=== PATIENT | female | born 1990 | race African-American/Black ===

== ENCOUNTER 2018-02-21 22:04 | Emergency (ER) | payer OTHER ==
[2018-02-21] MEDS ORDERED: Dexamethasone 4 MG TAB ONE (22:57)
[2018-02-21] MEDS ORDERED: Bicillin LA 1.2 MILLION UNITS/2 ML SYRINGE ONE (22:57)
== END 2018-02-21 23:26 | disposition home or self-care (01) ==
LOC: ERS 22:04
DX: J02.9 Acute pharyngitis, unspecified (principal); I10 Essential (primary) hypertension
CPT/HCPCS: 87081; 87430; 96372; J0561; J8540

== ENCOUNTER 2019-03-01 11:54 | Emergency (ER) | payer OTHER | END 2019-03-01 13:05 | disposition home or self-care (01) | LOC: ERS 11:54 | DX: K03.81 Cracked tooth (principal); I10 Essential (primary) hypertension | CPT/HCPCS: 99282 ==

== ENCOUNTER 2019-12-06 11:43 | Emergency (ER) | payer OTHER ==
[2019-12-06] MEDS ORDERED: Ketorolac Tromethamine 30 MG/ML VIAL ONE (12:21)
== END 2019-12-06 12:30 | disposition home or self-care (01) ==
LOC: ERS 11:43
DX: G44.209 Tension-type headache, unspecified, not intractable (principal); M19.90 Unspecified osteoarthritis, unspecified site; I10 Essential (primary) hypertension; Z79.899 Other long term (current) drug therapy
CPT/HCPCS: 96372; 99283; J1885

== ENCOUNTER 2021-05-08 17:04 | Emergency (ER) | payer OTHER | END 2021-05-08 18:54 | disposition home or self-care (01) | LOC: ERS 17:04 | DX: H74.8X1 Other specified disorders of right middle ear and mastoid (principal) | CPT/HCPCS: 99282; J1100 ==

== ENCOUNTER 2021-05-29 11:05 | Inpatient (IN) | payer OTHER ==
[2021-05-29 11:42] LABS: #Lymphocytes 1.6 thou/uL (1.20-3.40); #Monocytes 0.6 thou/uL (0.11-0.59); #Neutrophils 4.9 thou/uL (1.40-6.50); %Basophils 0.1 % (0.0-1.0); %Eosinophils 0.1 % (0.0-10.0); %Monocytes 8.1 % (0.0-10.0); %Neutrophils 68.7 % (42.0-75.0); Hemoglobin 16.1 g/dL (12.0-16.0); Mean Corpuscular HGB CONC 31.2 g/dL (32.0-36.0); Mean Corpuscular Hemoglobin 26.8 pg (27.0-31.0); Mean Corpuscular Volume 85.9 fL (78.0-98.0); Mean Platelet Volume 8.3 fL (7.4-10.4); Platelet Count 269 thou/uL (130-400); RBC Distribution Width 13.1 % (11.5-14.5); Red Blood Cell (RBC) Count 6.01 mill/uL (4.20-5.40); White Blood Cell (WBC) Count 7.1 thou/uL (4.8-10.8)
[2021-05-29 12:11] LABS: ALT (SGPT) 24 U/L (8-55); AST (SGOT) 43 U/L (5-34); Albumin 4.2 g/dL (3.5-5.0); Alkaline Phosphatase 68 U/L (40-110); Anion Gap 16 mmol/L (10-20); BUN (Urea Nitrogen) 22 mg/dL (7.0-18.7); Bilirubin, Total 0.2 mg/dL (0.2-1.2); Calc. Creatinine Clearance 0 mL/min (70-130); Calcium 9.1 mg/dL (7.8-10.44); Carbon Dioxide 14 mmol/L (22-29); Chloride 102 mmol/L (98-107); Globulin 4.7 g/dL (2.4-3.5); Glucose 120 mg/dL (70-105); Potassium 4.2 mmol/L (3.5-5.1); Protein, Total 8.9 g/dL (6.0-8.3); Sodium 128 mmol/L (136-145)
[2021-05-29 12:38] LABS: BHCG - Serum Negative (NEGATIVE); Pregs Control Background? CLEAR/WHITE (CLR/WHITE); Pregs Control Bar Appear? YES (CONTROL BAR)
[2021-05-29] MEDS ORDERED: Acetaminophen 500 MG TAB ONE (12:47)
[2021-05-29] MEDS ORDERED: Ondansetron PF 4 MG/2 ML Vial ONE (12:48)
[2021-05-29] MEDS ORDERED: cefTRIAXone\\ROCEPHIN 2 GM VIAL ONE (12:48)
[2021-05-29 13:46] LABS: SARS-CoV-2 NAA Rapid Test DETECTED (NotDetected)
[2021-05-29] MEDS ORDERED: Ondansetron PF 4 MG/2 ML Vial IVP PRN (14:07)
[2021-05-29] MEDS ORDERED: Loperamide HCl 2 MG CAP PO PRN ×2 (14:07)
[2021-05-29] MEDS ORDERED: Enoxaparin Sodium 40 MG/0.4 ML SYRINGE SC SCH (14:10)
[2021-05-29] MEDS ORDERED: Promethazine HCl 12.5 MG in Sodium Chloride 0.9% 50 ML IVPB PRN (14:17)
[2021-05-29] MEDS: Lactated Ringer's 1,000 ML IV SCH ×2 (16:10→21:46)
[2021-05-29] MEDS ORDERED: Famotidine 20 MG TAB PO SCH (21:00)
[2021-05-29] MEDS ORDERED: Famotidine 20 MG TAB ONE (21:45)
[2021-05-30] MEDS: Lactated Ringer's 1,000 ML IV SCH ×5 (00:28→18:25)
[2021-05-30] MEDS: Guaifenesin DM 100-10/5 ML UDCUP PO PRN ×3 (00:28→18:24)
[2021-05-30] MEDS: Acetaminophen 325 MG TAB PO PRN (00:34)
[2021-05-30] MEDS ORDERED: Ibuprofen 100 MG/5 ML UDCUP PO PRN (00:48)
[2021-05-30 07:12] LABS: ALT (SGPT) 17 U/L (8-55); AST (SGOT) 36 U/L (5-34); Albumin 3.2 g/dL (3.5-5.0); Alkaline Phosphatase 46 U/L (40-110); Anion Gap 7 mmol/L (10-20); BUN (Urea Nitrogen) 10 mg/dL (7.0-18.7); Bilirubin, Total 0.2 mg/dL (0.2-1.2); Calc. Creatinine Clearance 168 mL/min (70-130); Calcium 8.3 mg/dL (7.8-10.44); Carbon Dioxide 24 mmol/L (22-29); Chloride 101 mmol/L (98-107); Globulin 3.5 g/dL (2.4-3.5); Glucose 109 mg/dL (70-105); Potassium 4.1 mmol/L (3.5-5.1); Protein, Total 6.7 g/dL (6.0-8.3); Sodium 128 mmol/L (136-145)
[2021-05-30] MEDS: Enoxaparin Sodium 40 MG/0.4 ML SYRINGE SC SCH (08:08)
[2021-05-30 09:00] LABS: Band 7 % (5-11); Hemoglobin 14.3 g/dL (12.0-16.0); Lymphocytes 19 % (21-51); MDiff Complete? YES; Mean Corpuscular HGB CONC 32.9 g/dL (32.0-36.0); Mean Corpuscular Hemoglobin 27.9 pg (27.0-31.0); Mean Corpuscular Volume 84.9 fL (78.0-98.0); Mean Platelet Volume 8.4 fL (7.4-10.4); Monocytes 4 % (0-10); Neutrophil 70 % (42-75); Platelet Count 203 thou/uL (130-400); Platelet Morphology Comment Appears Adequate; RBC Distribution Width 12.9 % (11.5-14.5); RBC Morphology Normal; Red Blood Cell (RBC) Count 5.13 mill/uL (4.20-5.40); White Blood Cell (WBC) Count 4.8 thou/uL (4.8-10.8)
[2021-05-30] MEDS: Dexamethasone 4 MG TAB PO SCH (09:58)
[2021-05-30 16:48] LABS: Bilirubin Negative (Negative); Blood, Urine 3+ (Negative); Clarity Turbid (Clear); Glucose, Urine (Dipstick) Normal (Negative); Ketone, Urine 10 mg/dL (Negative); Leukocyte 250 Leu/uL (Negative); Nitrite Negative (Negative); Protein, Urine (Dipstick) 30 mg/dL (Neg-Trace); RBC/HPF Greater than 50 HPF (0-3); Specific Gravity, Urine 1.009 (1.002-1.036); Squamous Epithelial 0-3 HPF (0-3); Urobilinogen Normal mg/dL (Less than 2)
[2021-05-30 17:03] LABS: Bacteria/HPF 1+ HPF (None Seen)
[2021-05-30] MEDS: Melatonin 3 MG TAB PO PRN (22:15)
[2021-05-31] MEDS ORDERED: diphenhydrAMINE 50 MG/ML VIAL IVP SCH ×2 (01:30→21:00)
[2021-05-31] MEDS: Lactated Ringer's 1,000 ML IV SCH ×2 (02:57→08:36)
[2021-05-31] MEDS: Acetaminophen 325 MG TAB PO PRN ×4 (03:20→23:25)
[2021-05-31] MEDS ORDERED: Ibuprofen 100 MG/5 ML UDCUP PO PRN ×2 (07:33→07:43)
[2021-05-31] MEDS: Enoxaparin Sodium 40 MG/0.4 ML SYRINGE SC SCH (08:34)
[2021-05-31] MEDS: Guaifenesin DM 100-10/5 ML UDCUP PO PRN ×3 (08:34→23:25)
[2021-05-31] MEDS: Dexamethasone 4 MG TAB PO SCH (08:34)
[2021-05-31] MEDS ORDERED: Lactated Ringer's 1,000 ML IV SCH ×2 (09:30→12:00)
[2021-05-31] MEDS ORDERED: Iopamidol-370 76% 500 ML 1 ML ONE (11:24)
[2021-05-31] MEDS ORDERED: Enoxaparin Sodium 60 MG/0.6 ML SYRINGE SC ONE (11:40)
[2021-05-31 12:10] LABS: Hemoglobin 13.8 g/dL (12.0-16.0); Mean Corpuscular Hemoglobin 27.1 pg (27.0-31.0); Mean Corpuscular Volume 84.9 fL (78.0-98.0); Mean Platelet Volume 8.4 fL (7.4-10.4); Platelet Count 182 thou/uL (130-400); Red Blood Cell (RBC) Count 5.09 mill/uL (4.20-5.40); White Blood Cell (WBC) Count 5.9 thou/uL (4.8-10.8)
[2021-05-31 12:19] LABS: ALT (SGPT) 13 U/L (8-55); AST (SGOT) 40 U/L (5-34); Albumin 2.4 g/dL (3.5-5.0); Alkaline Phosphatase 34 U/L (40-110); Anion Gap 11 mmol/L (10-20); BUN (Urea Nitrogen) 10 mg/dL (7.0-18.7); Bilirubin, Total 0.2 mg/dL (0.2-1.2); Calc. Creatinine Clearance 170 mL/min (70-130); Calcium 7.3 mg/dL (7.8-10.44); Carbon Dioxide 17 mmol/L (22-29); Chloride 98 mmol/L (98-107); Globulin 3.1 g/dL (2.4-3.5); Glucose 145 mg/dL (70-105); Potassium 3.7 mmol/L (3.5-5.1); Protein, Total 5.5 g/dL (6.0-8.3); Sodium 122 mmol/L (136-145)
[2021-05-31 12:42] LABS: Band 9 % (5-11); Lymphocytes 16 % (21-51); MDiff Complete? YES; Neutrophil 75 % (42-75); Platelet Morphology Comment Appears Adequate; Polychromasia SLIGHT = 2-3 cells (100X) (0-2/hpf); Vacuoles SLIGHT
[2021-05-31] MEDS ORDERED: Furosemide 40 MG/4 ML VIAL SLOW IVP SCH (13:00)
[2021-05-31] MEDS: Famotidine 20 MG TAB PO PRN (15:08)
[2021-05-31 18:05] LABS: Anion Gap 13 mmol/L (10-20); BUN (Urea Nitrogen) 11 mg/dL (7.0-18.7); Calc. Creatinine Clearance 177 mL/min (70-130); Calcium 8.3 mg/dL (7.8-10.44); Carbon Dioxide 16 mmol/L (22-29); Chloride 101 mmol/L (98-107); Glucose 159 mg/dL (70-105); Potassium 4.5 mmol/L (3.5-5.1); Sodium 125 mmol/L (136-145)
[2021-06-01] MEDS: Acetaminophen 325 MG TAB PO PRN ×2 (07:23→18:18)
[2021-06-01] MEDS: Enoxaparin Sodium 40 MG/0.4 ML SYRINGE SC SCH (07:23)
[2021-06-01] MEDS: Dexamethasone 4 MG TAB PO SCH (07:23)
[2021-06-01] MEDS: Guaifenesin DM 100-10/5 ML UDCUP PO PRN ×2 (07:24→18:18)
[2021-06-01 08:18] LABS: Hemoglobin 16.4 g/dL (12.0-16.0); Mean Corpuscular HGB CONC 33.7 g/dL (32.0-36.0); Mean Corpuscular Hemoglobin 28.4 pg (27.0-31.0); Mean Corpuscular Volume 84.2 fL (78.0-98.0); Mean Platelet Volume 9.5 fL (7.4-10.4); Platelet Count 142 thou/uL (130-400); RBC Distribution Width 13.2 % (11.5-14.5); Red Blood Cell (RBC) Count 5.78 mill/uL (4.20-5.40); White Blood Cell (WBC) Count 10.5 thou/uL (4.8-10.8)
[2021-06-01 08:34] LABS: Anion Gap 17 mmol/L (10-20); BUN (Urea Nitrogen) 10 mg/dL (7.0-18.7); Calc. Creatinine Clearance 195 mL/min (70-130); Calcium 7.9 mg/dL (7.8-10.44); Carbon Dioxide 13 mmol/L (22-29); Chloride 100 mmol/L (98-107); Glucose 137 mg/dL (70-105); Potassium 4.7 mmol/L (3.5-5.1); Sodium 125 mmol/L (136-145)
[2021-06-01 09:15] LABS: Band 5 % (5-11); Lymphocytes 12 % (21-51); MDiff Complete? YES; Neutrophil 81 % (42-75); Platelet Morphology Comment Appears Adequate; RBC Morphology Normal; Reactive Lymphocytes 2 % (0-10)
[2021-06-01] MEDS: Famotidine 20 MG TAB PO PRN (09:35)
[2021-06-01 12:40] LABS: Actual Bicarbonate (HCO3a) 19.2 mEq/L (22-28); Base Excess (BEa) -2.9 mEq/L (-2.0 to +3.0); CO2 Tension 27.7 mmHg (35.0-45.0); Calcium, Ionized (arterial) 1.07 mmol/L (1.12-1.30); Carboxyhemoglobin (COHb) 0.5 gm% (0.0-3.0); Hemoglobin (Hb) 16.5 g/dL (12.0-16.0); Potassium - ABG Lab 3.83 mmol/L (3.70-5.30); pH, Arterial 7.46 (7.35-7.45)
[2021-06-01 12:45] LABS: ALV-art Gradient 250.915 mmHg (0-20); O2 Tension (PaO2), arterial 56.7 mmHg (80.0-100.0); Puncture Site RBA
[2021-06-01 17:00] LABS: Anion Gap 14 mmol/L (10-20); BUN (Urea Nitrogen) 10 mg/dL (7.0-18.7); Calc. Creatinine Clearance 198 mL/min (70-130); Carbon Dioxide 21 mmol/L (22-29); Chloride 94 mmol/L (98-107); Glucose 130 mg/dL (70-105); Potassium 4.1 mmol/L (3.5-5.1); Sodium 125 mmol/L (136-145)
[2021-06-01] MEDS ORDERED: diphenhydrAMINE 50 MG/ML VIAL IVP SCH (22:45)
[2021-06-02] MEDS: Melatonin 3 MG TAB PO PRN ×2 (00:18→20:32)
[2021-06-02] MEDS: Albuterol 200 PUFF (6.7GM INHALER) INH PRN ×2 (01:38→05:59)
[2021-06-02 02:08] LABS: Actual Bicarbonate (HCO3a) 22.1 mEq/L (22-28); Base Excess (BEa) -0.9 mEq/L (-2.0 to +3.0); CO2 Tension 32.5 mmHg (35.0-45.0); Calcium, Ionized (arterial) 1.12 mmol/L (1.12-1.30); Carboxyhemoglobin (COHb) 0.4 gm% (0.0-3.0); Hemoglobin (Hb) 15.7 g/dL (12.0-16.0); O2 Tension (PaO2), arterial 61.2 mmHg (80.0-100.0); Potassium - ABG Lab 4.02 mmol/L (3.70-5.30); pH, Arterial 7.45 (7.35-7.45)
[2021-06-02 02:10] LABS: ALV-art Gradient 432.925 mmHg (0-20); Puncture Site RRA
[2021-06-02] MEDS: Acetaminophen 325 MG TAB PO PRN ×2 (03:26→23:49)
[2021-06-02] MEDS: Guaifenesin DM 100-10/5 ML UDCUP PO PRN (03:26)
[2021-06-02] MEDS: Famotidine 20 MG TAB PO PRN (06:34)
[2021-06-02] MEDS: Dexamethasone 4 MG TAB PO SCH (08:08)
[2021-06-02] MEDS: Enoxaparin Sodium 40 MG/0.4 ML SYRINGE SC SCH (08:08)
[2021-06-02] MEDS ORDERED: Magnesium 2 GM/50 ML 2 GM in Premix Bag 1 BAG IVPB PRN (08:09)
[2021-06-02] MEDS ORDERED: Potassium Phosphate 15 MMOL in Sodium Chloride 0.9% 250 ML 250 ML IVPB PRN (08:09)
[2021-06-02] MEDS ORDERED: Electrolyte Replacement Protocol 1 EACH FS PRN (08:15)
[2021-06-02] MEDS ORDERED: Lactated Ringer's 500 ML IV SCH (08:15)
[2021-06-02] MEDS ORDERED: REMDESIVIR 200 MG in Sodium Chloride 0.9% 250 ML 210 ML IV SCH (09:00)
[2021-06-02 09:01] LABS: Actual Bicarbonate (HCO3a) 22.7 mEq/L (22-28); Base Excess (BEa) -0.9 mEq/L (-2.0 to +3.0); CO2 Tension 34.9 mmHg (35.0-45.0); Calcium, Ionized (arterial) 1.12 mmol/L (1.12-1.30); Carboxyhemoglobin (COHb) 0.6 gm% (0.0-3.0); Hemoglobin (Hb) 15.3 g/dL (12.0-16.0); Potassium - ABG Lab 3.75 mmol/L (3.70-5.30); pH, Arterial 7.43 (7.35-7.45)
[2021-06-02 09:04] LABS: O2 Tension (PaO2), arterial 55.7 mmHg (80.0-100.0); Puncture Site RRA
[2021-06-02 09:37] LABS: ALV-art Gradient 328.475 mmHg (0-20)
[2021-06-02] MEDS: Lactated Ringer's 1,000 ML IV SCH ×3 (10:02→23:51)
[2021-06-02] MEDS: Famotidine 20 MG TAB PO SCH ×2 (10:03→20:32)
[2021-06-02] MEDS: Azithromycin 500 MG in Sodium Chloride 0.9% 250 ML 250 ML IVPB SCH ×2 (10:03→11:03)
[2021-06-02 12:31] LABS: Hemoglobin 15.7 g/dL (12.0-16.0); Mean Corpuscular Hemoglobin 27.8 pg (27.0-31.0); Mean Corpuscular Volume 84.2 fL (78.0-98.0); Mean Platelet Volume 9.5 fL (7.4-10.4); Platelet Count 153 thou/uL (130-400); RBC Distribution Width 13.1 % (11.5-14.5); Red Blood Cell (RBC) Count 5.63 mill/uL (4.20-5.40); White Blood Cell (WBC) Count 13.4 thou/uL (4.8-10.8)
[2021-06-02 12:32] LABS: Band 1 % (5-11); Lymphocytes 20 % (21-51); MDiff Complete? YES; Monocytes 3 % (0-10); Neutrophil 76 % (42-75); Platelet Morphology Comment Appears Adequate; RBC Morphology Normal
[2021-06-02 13:09] LABS: Chloride 98 mmol/L (98-107); Sodium 126 mmol/L (136-145)
[2021-06-02 13:16] LABS: Anion Gap 19 mmol/L (10-20); Carbon Dioxide 15 mmol/L (22-29)
[2021-06-02 13:17] LABS: Calc. Creatinine Clearance 208 mL/min (70-130); Glucose 113 mg/dL (70-105); Potassium 6.5 mmol/L (3.5-5.1)
[2021-06-02 13:18] LABS: BUN (Urea Nitrogen) 14 mg/dL (7.0-18.7)
[2021-06-03] MEDS ORDERED: diphenhydrAMINE 50 MG/ML VIAL IVP PRN (03:32)
[2021-06-03 04:30] LABS: Anion Gap 15 mmol/L (10-20); BUN (Urea Nitrogen) 14 mg/dL (7.0-18.7); Calc. Creatinine Clearance 205 mL/min (70-130); Calcium 7.9 mg/dL (7.8-10.44); Carbon Dioxide 22 mmol/L (22-29); Chloride 97 mmol/L (98-107); Glucose 111 mg/dL (70-105); Magnesium 2.1 mg/dL (1.6-2.6); Potassium 4.2 mmol/L (3.5-5.1); Sodium 130 mmol/L (136-145)
[2021-06-03] MEDS: Albuterol 200 PUFF (6.7GM INHALER) INH PRN (05:08)
[2021-06-03 05:18] LABS: Band 3 % (5-11); Hemoglobin 14.1 g/dL (12.0-16.0); Lymphocytes 19 % (21-51); MDiff Complete? YES; Mean Corpuscular HGB CONC 32.3 g/dL (32.0-36.0); Mean Corpuscular Hemoglobin 27.1 pg (27.0-31.0); Mean Corpuscular Volume 83.9 fL (78.0-98.0); Mean Platelet Volume 8.7 fL (7.4-10.4); Monocytes 5 % (0-10); Neutrophil 73 % (42-75); Platelet Count 224 thou/uL (130-400)
[2021-06-03] MEDS ORDERED: hydrOXYzine 25 MG TAB PO PRN (08:47)
[2021-06-03] MEDS ORDERED: REMDESIVIR 100 MG in Sodium Chloride 0.9% 250 ML 230 ML IV SCH (09:00)
[2021-06-03] MEDS ORDERED: ALPRAZolam 0.5 MG TAB PO PRN (09:15)
[2021-06-03] MEDS: Azithromycin 500 MG in Sodium Chloride 0.9% 250 ML 250 ML IVPB SCH (10:13)
[2021-06-03] MEDS: Dexamethasone 4 MG TAB PO SCH (10:14)
[2021-06-03] MEDS: Acetaminophen 325 MG TAB PO PRN (10:15)
[2021-06-03] MEDS: Famotidine 20 MG TAB PO SCH ×2 (10:15→21:47)
[2021-06-03] MEDS: Enoxaparin Sodium 40 MG/0.4 ML SYRINGE SC SCH (10:15)
[2021-06-03] MEDS: Lactated Ringer's 1,000 ML IV SCH ×2 (13:21→18:36)
[2021-06-04 03:25] LABS: Hemoglobin 13.9 g/dL (12.0-16.0); Mean Corpuscular HGB CONC 33.4 g/dL (32.0-36.0); Mean Corpuscular Hemoglobin 28.2 pg (27.0-31.0); Mean Corpuscular Volume 84.5 fL (78.0-98.0); Mean Platelet Volume 9.6 fL (7.4-10.4); Platelet Count 144 thou/uL (130-400); RBC Distribution Width 13.1 % (11.5-14.5); Red Blood Cell (RBC) Count 4.93 mill/uL (4.20-5.40); White Blood Cell (WBC) Count 13.3 thou/uL (4.8-10.8)
[2021-06-04 04:24] LABS: Band 2 % (5-11); Lymphocytes 10 % (21-51); MDiff Complete? YES; Monocytes 5 % (0-10); Neutrophil 83 % (42-75)
[2021-06-04] MEDS ORDERED: Lorazepam 2 MG/ML VIAL SLOW IVP SCH (04:38)
[2021-06-04 04:39] LABS: Chloride 97 mmol/L (98-107); Potassium 4.2 mmol/L (3.5-5.1); Sodium 131 mmol/L (136-145)
[2021-06-04 04:40] LABS: Calcium 7.9 mg/dL (7.8-10.44); Glucose 169 mg/dL (70-105)
[2021-06-04 04:42] LABS: Anion Gap 17 mmol/L (10-20); Carbon Dioxide 21 mmol/L (22-29)
[2021-06-04 04:44] LABS: BUN (Urea Nitrogen) 13 mg/dL (7.0-18.7); Calc. Creatinine Clearance 198 mL/min (70-130)
[2021-06-04 04:45] LABS: Magnesium 2.1 mg/dL (1.6-2.6)
[2021-06-04] MEDS ORDERED: Ventilator Sedation Protocol 1 EACH FS SCH (06:15)
[2021-06-04] MEDS ORDERED: Propofol 1,000 MG/100 ML VIAL IV ONE (06:30)
[2021-06-04] MEDS ORDERED: DISCONTINUE PREVIOUS NARCOTIC PAIN MEDICATIONS AND BENZODIAZEPINES FS SCH (07:00)
[2021-06-04] MEDS ORDERED: Propofol BOLUS 1,000 MG/100 ML VIAL IV PRN (07:00)
[2021-06-04] MEDS ORDERED: Fentanyl BOLUS 250 ML IVPB PRN (07:00)
[2021-06-04] MEDS ORDERED: Morphine 2 MG/ML VIAL SLOW IVP PRN (07:00)
[2021-06-04] MEDS ORDERED: fentaNYL Citrate/PF 2,000 MCG in Sodium Chloride 0.9% 60 ML IV SCH (07:00)
[2021-06-04 07:10] LABS: Actual Bicarbonate (HCO3a) 23.9 mEq/L (22-28); Base Excess (BEa) -4.3 mEq/L (-2.0 to +3.0); CO2 Tension 57.2 mmHg (35.0-45.0); Calcium, Ionized (arterial) 1.14 mmol/L (1.12-1.30); Carboxyhemoglobin (COHb) 1.1 gm% (0.0-3.0); Hemoglobin (Hb) 13.6 g/dL (12.0-16.0); Potassium - ABG Lab 4.64 mmol/L (3.70-5.30)
[2021-06-04 07:14] LABS: O2 Tension (PaO2), arterial 51.9 mmHg (80.0-100.0); Puncture Site LRA; pH, Arterial 7.24 (7.35-7.45)
[2021-06-04] MEDS ORDERED: Succinylcholine 200 MG/10 ml SYRINGE FS SCH (07:15)
[2021-06-04] MEDS ORDERED: Rocuronium Bromide 50 MG/5 ML VIAL IVP SCH (07:30)
[2021-06-04] MEDS ORDERED: PROPOFOL 200 MG/20 ML VIAL IVP SCH (07:30)
[2021-06-04] MEDS ORDERED: Fentanyl CADD 100 ML ONE ×2 (07:46→22:20)
[2021-06-04 07:47] LABS: Troponin I 0.311 ng/mL (< 0.028)
[2021-06-04] MEDS ORDERED: Vecuronium 10 MG VIAL ONE ×2 (08:19→08:46)
[2021-06-04 08:20] LABS: Actual Bicarbonate (HCO3a) 24.1 mEq/L (22-28); Base Excess (BEa) -1.2 mEq/L (-2.0 to +3.0); CO2 Tension 42.5 mmHg (35.0-45.0); Calcium, Ionized (arterial) 1.08 mmol/L (1.12-1.30); Carboxyhemoglobin (COHb) 0.7 gm% (0.0-3.0); Hemoglobin (Hb) 14.1 g/dL (12.0-16.0); O2 Tension (PaO2), arterial 71.5 mmHg (80.0-100.0); Potassium - ABG Lab 5.01 mmol/L (3.70-5.30); pH, Arterial 7.37 (7.35-7.45)
[2021-06-04 08:21] LABS: ALV-art Gradient 374.475 mmHg (0-20); Puncture Site RRA
[2021-06-04 08:23] LABS: Troponin I 1.145 ng/mL (< 0.028)
[2021-06-04] MEDS: Lorazepam 2 MG/ML VIAL SLOW IVP PRN ×3 (08:28→22:43)
[2021-06-04] MEDS: Azithromycin 500 MG in Sodium Chloride 0.9% 250 ML 250 ML IVPB SCH (08:49)
[2021-06-04] MEDS: Lactated Ringer's 1,000 ML IV SCH ×3 (08:49→20:24)
[2021-06-04] MEDS: Famotidine/PF 20 mg/2ml Vial SLOW IVP SCH ×2 (08:51→22:03)
[2021-06-04] MEDS: Enoxaparin Sodium 100 MG/ML SYRINGE SC SCH ×2 (08:51→22:03)
[2021-06-04] MEDS: Dexamethasone 4 MG TAB PO SCH (08:52)
[2021-06-04] MEDS ORDERED: Rocuronium Bromide 10 MG/ML (10ML VIAL) ONE (09:21)
[2021-06-04] MEDS ORDERED: PROPOFOL 200 MG/20 ML VIAL ONE (09:21)
[2021-06-04] MEDS ORDERED: Succinylcholine 200 MG/10 ml SYRINGE FS ONE (09:21)
[2021-06-04] MEDS ORDERED: Dexamethasone 4 mg/ml Vial SLOW IVP SCH (09:45)
[2021-06-04] MEDS: Propofol 1,000 MG/100 ML VIAL IV PRN ×2 (10:37→18:30)
[2021-06-04 11:37] LABS: Critical Call Chem Troponin I RESULT DECREASING; Troponin I 0.635 ng/mL (< 0.028)
[2021-06-04] MEDS: Vecuronium 10 MG VIAL IVP PRN ×2 (20:20→22:42)
[2021-06-05] MEDS: Propofol 1,000 MG/100 ML VIAL IV PRN ×5 (04:35→23:56)
[2021-06-05] MEDS: Lactated Ringer's 1,000 ML IV SCH (04:40)
[2021-06-05 04:53] LABS: Hemoglobin 11.5 g/dL (12.0-16.0); Mean Corpuscular HGB CONC 32.6 g/dL (32.0-36.0); Mean Corpuscular Hemoglobin 27.4 pg (27.0-31.0); Mean Platelet Volume 10.2 fL (7.4-10.4); Platelet Count 128 thou/uL (130-400); Red Blood Cell (RBC) Count 4.19 mill/uL (4.20-5.40); White Blood Cell (WBC) Count 16.2 thou/uL (4.8-10.8)
[2021-06-05 04:55] LABS: Anion Gap 17 mmol/L (10-20); BUN (Urea Nitrogen) 17 mg/dL (7.0-18.7); Calc. Creatinine Clearance 187 mL/min (70-130); Calcium 8.1 mg/dL (7.8-10.44); Carbon Dioxide 21 mmol/L (22-29); Chloride 98 mmol/L (98-107); Glucose 131 mg/dL (70-105); Magnesium 2.2 mg/dL (1.6-2.6); Phosphorus 2.8 mg/dL (2.3-4.7); Potassium 4.8 mmol/L (3.5-5.1); Sodium 131 mmol/L (136-145)
[2021-06-05 06:23] LABS: Band 7 % (5-11); Lymphocytes 15 % (21-51); MDiff Complete? YES; Neutrophil 78 % (42-75); Platelet Morphology Comment Appears Decreased
[2021-06-05 08:16] LABS: Actual Bicarbonate (HCO3a) 22.1 mEq/L (22-28); Analyzer IN Cardio ER; Base Excess (BEa) 0.1 mEq/L (-2.0 to +3.0); Calcium, Ionized (arterial) 1.07 mmol/L (1.12-1.30); Carboxyhemoglobin (COHb) 0.1 gm% (0.0-3.0); Hemoglobin (Hb) 12.1 g/dL (12.0-16.0); Potassium - ABG Lab 4.47 mmol/L (3.70-5.30); pH, Arterial 7.52 (7.35-7.45)
[2021-06-05 08:18] LABS: Puncture Site RRA
[2021-06-05] MEDS: Enoxaparin Sodium 100 MG/ML SYRINGE SC SCH ×2 (09:09→20:12)
[2021-06-05] MEDS: Famotidine/PF 20 mg/2ml Vial SLOW IVP SCH ×2 (09:10→20:12)
[2021-06-05] MEDS: Dexamethasone 4 mg/ml Vial SLOW IVP SCH (09:11)
[2021-06-05 10:18] LABS: ALT (SGPT) 53 U/L (8-55); AST (SGOT) 58 U/L (5-34); Albumin 2.6 g/dL (3.5-5.0); Alkaline Phosphatase 106 U/L (40-110); Bilirubin, Direct 0.1 mg/dL (0.1-0.3); Bilirubin, Total 0.5 mg/dL (0.2-1.2); Protein, Total 6.2 g/dL (6.0-8.3)
[2021-06-05 11:30] LABS: Base Excess (BEa) -1.9 mEq/L (-2.0 to +3.0); CO2 Tension 34.7 mmHg (35.0-45.0); Calcium, Ionized (arterial) 1.11 mmol/L (1.12-1.30); Carboxyhemoglobin (COHb) 0.4 gm% (0.0-3.0); Hemoglobin (Hb) 13.1 g/dL (12.0-16.0); O2 Tension (PaO2), arterial 103.6 mmHg (80.0-100.0); Potassium - ABG Lab 4.38 mmol/L (3.70-5.30); pH, Arterial 7.42 (7.35-7.45)
[2021-06-05] MEDS ORDERED: Fentanyl CADD 100 ML ONE (11:35)
[2021-06-05 13:33] LABS: Puncture Site RRA
[2021-06-05 13:34] LABS: ALV-art Gradient 138.225 mmHg (0-20)
[2021-06-05] MEDS: Lorazepam 2 MG/ML VIAL SLOW IVP PRN (13:42)
[2021-06-05] MEDS: Vecuronium 10 MG VIAL IVP PRN (13:43)
[2021-06-05] MEDS: BARICITINIB 1 MG TAB PO SCH (14:35)
[2021-06-06] MEDS ORDERED: Fentanyl CADD 100 ML ONE (00:21)
[2021-06-06] MEDS: Propofol 1,000 MG/100 ML VIAL IV PRN ×6 (03:52→22:55)
[2021-06-06 04:42] LABS: Hemoglobin 11.3 g/dL (12.0-16.0); Mean Corpuscular Hemoglobin 28.7 pg (27.0-31.0); Mean Corpuscular Volume 84.2 fL (78.0-98.0); Mean Platelet Volume 10.2 fL (7.4-10.4); Platelet Count 155 thou/uL (130-400); Red Blood Cell (RBC) Count 3.95 mill/uL (4.20-5.40); White Blood Cell (WBC) Count 18.8 thou/uL (4.8-10.8)
[2021-06-06 05:11] LABS: Band 2 % (5-11); Large Platelets SLIGHT; Lymphocytes 13 % (21-51); MDiff Complete? YES; Metamyelocyte 1 % (0-0); Monocytes 3 % (0-10); Myelocyte 1 % (0-0); Neutrophil 80 % (42-75); Platelet Morphology Comment Appears Adequate
[2021-06-06 05:23] LABS: Anion Gap 15 mmol/L (10-20); BUN (Urea Nitrogen) 14 mg/dL (7.0-18.7); Calc. Creatinine Clearance 222 mL/min (70-130); Calcium 8.3 mg/dL (7.8-10.44); Carbon Dioxide 23 mmol/L (22-29); Chloride 97 mmol/L (98-107); Glucose 137 mg/dL (70-105); Magnesium 2.4 mg/dL (1.6-2.6); Phosphorus 3.5 mg/dL (2.3-4.7); Potassium 5.1 mmol/L (3.5-5.1); Sodium 130 mmol/L (136-145)
[2021-06-06] MEDS: Dexamethasone 4 mg/ml Vial SLOW IVP SCH (08:31)
[2021-06-06] MEDS: Famotidine/PF 20 mg/2ml Vial SLOW IVP SCH ×2 (08:32→20:04)
[2021-06-06] MEDS: Enoxaparin Sodium 100 MG/ML SYRINGE SC SCH ×2 (08:32→20:04)
[2021-06-06] MEDS ORDERED: Furosemide 40 MG/4 ML VIAL SLOW IVP SCH (10:00)
[2021-06-06] MEDS ORDERED: cefTRIAXone\\ROCEPHIN 1 GM in Sodium Chloride 0.9% 100 ML IVPB SCH (11:00)
[2021-06-06 12:12] LABS: Actual Bicarbonate (HCO3a) 28.2 mEq/L (22-28); CO2 Tension 40.6 mmHg (35.0-45.0); Calcium, Ionized (arterial) 1.07 mmol/L (1.12-1.30); Carboxyhemoglobin (COHb) 0.3 gm% (0.0-3.0); Hemoglobin (Hb) 12.1 g/dL (12.0-16.0); O2 Tension (PaO2), arterial 71.9 mmHg (80.0-100.0); Potassium - ABG Lab 5.05 mmol/L (3.70-5.30); pH, Arterial 7.46 (7.35-7.45)
[2021-06-06] MEDS: Lorazepam 2 MG/ML VIAL SLOW IVP PRN (12:32)
[2021-06-06] MEDS: Fentanyl CADD 100 ML ONE ×2 (12:51→12:55)
[2021-06-06] MEDS: BARICITINIB 1 MG TAB PO SCH (14:10)
[2021-06-06 14:12] LABS: Puncture Site LRA
[2021-06-06 18:03] LABS: Anion Gap 12 mmol/L (10-20); BUN (Urea Nitrogen) 13 mg/dL (7.0-18.7); Calc. Creatinine Clearance 219 mL/min (70-130); Calcium 8.1 mg/dL (7.8-10.44); Carbon Dioxide 28 mmol/L (22-29); Chloride 96 mmol/L (98-107); Glucose 171 mg/dL (70-105); Potassium 5.2 mmol/L (3.5-5.1); Sodium 131 mmol/L (136-145)
[2021-06-07] MEDS ORDERED: Fentanyl CADD 100 ML ONE ×2 (01:59→16:47)
[2021-06-07] MEDS: Fentanyl CADD 100 ML IV SCH ×2 (02:01→16:56)
[2021-06-07] MEDS: Propofol 1,000 MG/100 ML VIAL IV PRN ×4 (03:36→19:50)
[2021-06-07 04:24] LABS: Hemoglobin 10.3 g/dL (12.0-16.0); Mean Corpuscular HGB CONC 32.6 g/dL (32.0-36.0); Mean Corpuscular Hemoglobin 27.6 pg (27.0-31.0); Mean Corpuscular Volume 84.9 fL (78.0-98.0); Mean Platelet Volume 9.5 fL (7.4-10.4); Platelet Count 197 thou/uL (130-400); RBC Distribution Width 13.1 % (11.5-14.5); Red Blood Cell (RBC) Count 3.74 mill/uL (4.20-5.40); White Blood Cell (WBC) Count 23.4 thou/uL (4.8-10.8)
[2021-06-07 04:40] LABS: ALT (SGPT) 114 U/L (8-55); AST (SGOT) 227 U/L (5-34); Albumin 2.7 g/dL (3.5-5.0); Alkaline Phosphatase 109 U/L (40-110); Anion Gap 13 mmol/L (10-20); BUN (Urea Nitrogen) 12 mg/dL (7.0-18.7); Bilirubin, Total 0.8 mg/dL (0.2-1.2); Calc. Creatinine Clearance 223 mL/min (70-130); Calcium 8.3 mg/dL (7.8-10.44); Carbon Dioxide 29 mmol/L (22-29); Chloride 95 mmol/L (98-107); Globulin 3.9 g/dL (2.4-3.5); Glucose 131 mg/dL (70-105); Magnesium 2.3 mg/dL (1.6-2.6); Phosphorus 3.1 mg/dL (2.3-4.7); Protein, Total 6.6 g/dL (6.0-8.3); Sodium 132 mmol/L (136-145)
[2021-06-07 05:34] LABS: Band 9 % (5-11); Lymphocytes 11 % (21-51); MDiff Complete? YES; Monocytes 6 % (0-10); Neutrophil 74 % (42-75); Nucleated RBC 2 % (0)
[2021-06-07 06:45] LABS: Actual Bicarbonate (HCO3a) 30.7 mEq/L (22-28); Calcium, Ionized (arterial) 1.12 mmol/L (1.12-1.30); Hemoglobin (Hb) 11.5 g/dL (12.0-16.0); Potassium - ABG Lab 4.95 mmol/L (3.70-5.30); pH, Arterial 7.45 (7.35-7.45)
[2021-06-07 06:56] LABS: O2 Tension (PaO2), arterial 55.8 mmHg (80.0-100.0); Puncture Site LRA
[2021-06-07] MEDS: Famotidine/PF 20 mg/2ml Vial SLOW IVP SCH ×2 (08:00→20:42)
[2021-06-07] MEDS: Dexamethasone 4 mg/ml Vial SLOW IVP SCH (08:00)
[2021-06-07] MEDS: Enoxaparin Sodium 100 MG/ML SYRINGE SC SCH (08:01)
[2021-06-07] MEDS ORDERED: VANCOMYCIN IVPB PRN (08:56)
[2021-06-07] MEDS: Cefepime 2 GM in Sodium Chloride 0.9% 100 ML IVPB SCH ×2 (09:24→20:42)
[2021-06-07 11:41] LABS: Prothrombin Time 13.5 sec (12.0-14.7)
[2021-06-07 11:43] LABS: PTT 44.2 sec (22.9-36.1)
[2021-06-07 12:08] LABS: Lactic Acid 1.1 mmol/L (0.5-2.2)
[2021-06-07 12:21] LABS: Base Excess (BEa) 6.5 mEq/L (-2.0 to +3.0); CO2 Tension 44.6 mmHg (35.0-45.0); Calcium, Ionized (arterial) 1.04 mmol/L (1.12-1.30); Carboxyhemoglobin (COHb) 0.1 gm% (0.0-3.0); Hemoglobin (Hb) 10.7 g/dL (12.0-16.0); Potassium - ABG Lab 5.01 mmol/L (3.70-5.30); pH, Arterial 7.46 (7.35-7.45)
[2021-06-07 12:40] LABS: Puncture Site RRA
[2021-06-07 13:29] LABS: SARS-CoV-2 PCR by NAA DETECTED (NotDetected)
[2021-06-07] MEDS ORDERED: BARICITINIB 2 MG TAB PO SCH (15:00)
[2021-06-07] MEDS: Vancomycin HCl 1.5 GM in Sodium Chloride 0.9% 250 ML 300 ML IVPB SCH (16:29)
[2021-06-08] MEDS: Vancomycin HCl 1.5 GM in Sodium Chloride 0.9% 250 ML 300 ML IVPB SCH ×4 (01:29→18:39)
[2021-06-08] MEDS: Propofol 1,000 MG/100 ML VIAL IV PRN ×4 (02:48→20:56)
[2021-06-08] MEDS: Fentanyl CADD 100 ML IV SCH ×2 (07:27→21:07)
[2021-06-08 08:15] LABS: Albumin 2.7 g/dL (3.5-5.0)
[2021-06-08 08:16] LABS: Chloride 95 mmol/L (98-107); Potassium 4.6 mmol/L (3.5-5.1); Sodium 130 mmol/L (136-145)
[2021-06-08 08:17] LABS: Calcium 8.6 mg/dL (7.8-10.44); Glucose 123 mg/dL (70-105)
[2021-06-08 08:18] LABS: Globulin 3.8 g/dL (2.4-3.5); Protein, Total 6.5 g/dL (6.0-8.3)
[2021-06-08 08:19] LABS: Anion Gap 12 mmol/L (10-20); Bilirubin, Total 1.5 mg/dL (0.2-1.2); Carbon Dioxide 28 mmol/L (22-29)
[2021-06-08 08:20] LABS: Alkaline Phosphatase 133 U/L (40-110)
[2021-06-08 08:21] LABS: Calc. Creatinine Clearance 237 mL/min (70-130); Phosphorus 3.6 mg/dL (2.3-4.7)
[2021-06-08 08:22] LABS: BUN (Urea Nitrogen) 9 mg/dL (7.0-18.7)
[2021-06-08 08:23] LABS: ALT (SGPT) 173 U/L (8-55); AST (SGOT) 326 U/L (5-34); Magnesium 2.1 mg/dL (1.6-2.6)
[2021-06-08 08:24] LABS: Band 8 % (5-11); Bite Cells SLIGHT = 2-5 cells (100X) (0-1/hpf); Hemoglobin 10.5 g/dL (12.0-16.0); Lymphocytes 10 % (21-51); MDiff Complete? YES; Mean Corpuscular HGB CONC 32.6 g/dL (32.0-36.0); Mean Corpuscular Volume 85.8 fL (78.0-98.0); Mean Platelet Volume 8.7 fL (7.4-10.4); Metamyelocyte 3 % (0-0); Monocytes 2 % (0-10); Myelocyte 2 % (0-0); Neutrophil 75 % (42-75); Platelet Count 148 thou/uL (130-400); Platelet Morphology Comment Appears Adequate; Polychromasia SLIGHT = 2-3 cells (100X) (0-2/hpf); RBC Distribution Width 13.2 % (11.5-14.5); Red Blood Cell (RBC) Count 3.76 mill/uL (4.20-5.40); White Blood Cell (WBC) Count 20.4 thou/uL (4.8-10.8)
[2021-06-08] MEDS ORDERED: Fentanyl 100 MCG/2 ML VIAL SLOW IVP SCH (08:45)
[2021-06-08] MEDS ORDERED: Midazolam HCl 2 mg/2 ml Vial SLOW IVP SCH (08:45)
[2021-06-08] MEDS ORDERED: Enoxaparin Sodium 40 MG/0.4 ML SYRINGE SC SCH (09:00)
[2021-06-08] MEDS: Fentanyl CADD 100 ML ONE ×2 (09:00→19:50)
[2021-06-08] MEDS ORDERED: Fentanyl 100 MCG/2 ML VIAL ONE (09:43)
[2021-06-08] MEDS: Cefepime 2 GM in Sodium Chloride 0.9% 100 ML IVPB SCH ×2 (09:46→20:53)
[2021-06-08] MEDS: Dexamethasone 4 mg/ml Vial SLOW IVP SCH (09:50)
[2021-06-08] MEDS ORDERED: Iopamidol-370 76% 500 ML 1 ML ONE (09:52)
[2021-06-08] MEDS: Famotidine/PF 20 mg/2ml Vial SLOW IVP SCH (09:54)
[2021-06-08] MEDS: Vecuronium 10 MG VIAL IVP PRN (13:07)
[2021-06-08] MEDS ORDERED: Heparin 25,000 units/D5W 500 ML IVPB SCH (17:30)
[2021-06-08] MEDS ORDERED: Heparin 10,000 UNITS/ 10 ML VIAL SLOW IVP SCH (17:30)
[2021-06-08] MEDS: metroNIDAZOLE 500 MG in Premix Bag 1 BAG IVPB SCH (18:20)
[2021-06-08 18:34] LABS: Vancomycin, Trough 37.7 ug/mL
[2021-06-08] MEDS: Famotidine 20 MG TAB PO SCH (20:54)
[2021-06-08] MEDS ORDERED: Enoxaparin Sodium 100 MG/ML SYRINGE SC SCH (21:00)
[2021-06-08] MEDS ORDERED: Fentanyl CADD 100 ML ONE (21:04)
[2021-06-09] MEDS: metroNIDAZOLE 500 MG in Premix Bag 1 BAG IVPB SCH ×3 (02:37→16:45)
[2021-06-09] MEDS: Propofol 1,000 MG/100 ML VIAL IV PRN ×4 (02:42→20:58)
[2021-06-09 04:12] LABS: Platelet Count 216 thou/uL (130-400)
[2021-06-09 06:36] LABS: Hemoglobin 8.9 g/dL (12.0-16.0); Mean Corpuscular HGB CONC 31.3 g/dL (32.0-36.0); Mean Corpuscular Hemoglobin 26.7 pg (27.0-31.0); Mean Corpuscular Volume 85.1 fL (78.0-98.0); Mean Platelet Volume 9.2 fL (7.4-10.4); Platelet Count 208 thou/uL (130-400); RBC Distribution Width 13.1 % (11.5-14.5); Red Blood Cell (RBC) Count 3.33 mill/uL (4.20-5.40); White Blood Cell (WBC) Count 21.2 thou/uL (4.8-10.8)
[2021-06-09 06:44] LABS: PTT 210.1 sec (22.9-36.1)
[2021-06-09 06:49] LABS: Lactic Acid 0.9 mmol/L (0.5-2.2)
[2021-06-09 06:51] LABS: Band 4 % (5-11); Hypochromia SLIGHT = 6-15 cells (100X) (0-5/hpf); Lymphocytes 8 % (21-51); MDiff Complete? YES; Metamyelocyte 1 % (0-0); Monocytes 6 % (0-10); Myelocyte 2 % (0-0); Neutrophil 79 % (42-75); Platelet Morphology Comment Appears Adequate; Polychromasia SLIGHT = 2-3 cells (100X) (0-2/hpf)
[2021-06-09 06:54] LABS: ALT (SGPT) 183 U/L (8-55); AST (SGOT) 257 U/L (5-34); Albumin 2.5 g/dL (3.5-5.0); Alkaline Phosphatase 125 U/L (40-110); Anion Gap 12 mmol/L (10-20); BUN (Urea Nitrogen) 9 mg/dL (7.0-18.7); Bilirubin, Total 0.9 mg/dL (0.2-1.2); Calc. Creatinine Clearance 244 mL/min (70-130); Calcium 8.9 mg/dL (7.8-10.44); Carbon Dioxide 29 mmol/L (22-29); Chloride 95 mmol/L (98-107); Globulin 4.1 g/dL (2.4-3.5); Glucose 125 mg/dL (70-105); Potassium 4.4 mmol/L (3.5-5.1); Protein, Total 6.6 g/dL (6.0-8.3); Sodium 132 mmol/L (136-145)
[2021-06-09 08:14] LABS: Unfractionated Heparin 0.87 IU/mL
[2021-06-09 08:15] LABS: Vancomycin, Random 4.2 ug/mL (See Comment)
[2021-06-09] MEDS ORDERED: MEROPENEM 1 GM/50 ML 1 GM in Premix Bag 1 BAG IVPB SCH (08:15)
[2021-06-09] MEDS: Dexamethasone 4 mg/ml Vial SLOW IVP SCH (08:20)
[2021-06-09] MEDS: Famotidine 20 MG TAB PO SCH ×2 (08:21→20:14)
[2021-06-09] MEDS ORDERED: Vancomycin HCl 1 GM in Sodium Chloride 0.9% 250 ML 250 ML IVPB SCH ×2 (09:00→10:00)
[2021-06-09] MEDS ORDERED: Vancomycin 1 GM in Premix Bag 1 BAG IVPB SCH (10:00)
[2021-06-09] MEDS ORDERED: Lorazepam 2 MG/ML VIAL SLOW IVP PRN (11:29)
[2021-06-09] MEDS ORDERED: Heparin 25,000 units/D5W 500 ML IV SCH (11:30)
[2021-06-09] MEDS ORDERED: Heparin 10,000 UNITS/ 10 ML VIAL SLOW IVP SCH ×2 (11:30→16:00)
[2021-06-09] MEDS ORDERED: methylPREDNISolone Sod Succ 40 MG VIAL IVP SCH (11:45)
[2021-06-09 11:46] LABS: Vancomycin, Trough 2.6 ug/mL
[2021-06-09] MEDS ORDERED: Fentanyl CADD 100 ML ONE (11:52)
[2021-06-09] MEDS ORDERED: Furosemide 40 MG/4 ML VIAL SLOW IVP SCH (12:00)
[2021-06-09 12:08] LABS: PTT 42.2 sec (22.9-36.1); Prothrombin Time 13.4 sec (12.0-14.7)
[2021-06-09] MEDS: methylPREDNISolone Sod Succ 40 MG VIAL IVP SCH (13:07)
[2021-06-09] MEDS: Bacteriostatic Water 30 ML VIAL FS PRN (13:08)
[2021-06-09] MEDS: Vancomycin HCl 1.25 GM in Sodium Chloride 0.9% 250 ML 250 ML IVPB SCH ×2 (13:09→19:10)
[2021-06-09 13:18] LABS: Base Excess (BEa) 6.9 mEq/L (-2.0 to +3.0); CO2 Tension 42.6 mmHg (35.0-45.0); Calcium, Ionized (arterial) 1.13 mmol/L (1.12-1.30); Carboxyhemoglobin (COHb) 0.2 gm% (0.0-3.0); Hemoglobin (Hb) 9.8 g/dL (12.0-16.0); O2 Tension (PaO2), arterial 82.6 mmHg (80.0-100.0); Potassium - ABG Lab 4.29 mmol/L (3.70-5.30); pH, Arterial 7.48 (7.35-7.45)
[2021-06-09 13:21] LABS: Puncture Site Arterial Line
[2021-06-09] MEDS ORDERED: Meropenem 1 GM in Sodium Chloride 0.9% 100 ML IVPB SCH (14:00)
[2021-06-09 14:01] LABS: DRVVT Confirm 36.2; HEX PHOS LA Tube 1 52.8 SEC; HEX PHOS LA Tube 2 38.6 SEC; Hexagonal Phospholipid Neut 14.2 SEC (0-8.0)
[2021-06-09 14:04] LABS: Factor VIII Test 508.9 % ACTIVE (56-157)
[2021-06-09] MEDS: MEROPENEM 1 GM/50 ML 1 GM in Premix Bag 1 BAG IVPB SCH (15:44)
[2021-06-09] MEDS: Heparin 25,000 units/D5W 500 ML IV SCH (16:46)
[2021-06-09 17:36] LABS: Complement-C4 27.9 mg/dL (15-57)
[2021-06-10] MEDS: MEROPENEM 1 GM/50 ML 1 GM in Premix Bag 1 BAG IVPB SCH ×3 (00:15→15:36)
[2021-06-10] MEDS: methylPREDNISolone Sod Succ 40 MG VIAL IVP SCH ×2 (00:30→12:23)
[2021-06-10] MEDS ORDERED: Fentanyl CADD 100 ML ONE ×2 (01:00→12:51)
[2021-06-10] MEDS: Fentanyl CADD 100 ML IV SCH (01:07)
[2021-06-10] MEDS: Heparin 25,000 units/D5W 500 ML IV SCH (01:08)
[2021-06-10] MEDS: Propofol 1,000 MG/100 ML VIAL IV PRN ×7 (01:09→20:25)
[2021-06-10 05:10] LABS: ALT (SGPT) 174 U/L (8-55); AST (SGOT) 183 U/L (5-34); Albumin 2.5 g/dL (3.5-5.0); Alkaline Phosphatase 113 U/L (40-110); Anion Gap 12 mmol/L (10-20); BUN (Urea Nitrogen) 10 mg/dL (7.0-18.7); Bilirubin, Total 0.6 mg/dL (0.2-1.2); Calc. Creatinine Clearance 146 mL/min (70-130); Calcium 8.8 mg/dL (7.8-10.44); Carbon Dioxide 30 mmol/L (22-29); Chloride 97 mmol/L (98-107); Glucose 116 mg/dL (70-105); Potassium 3.9 mmol/L (3.5-5.1); Protein, Total 6.5 g/dL (6.0-8.3); Sodium 135 mmol/L (136-145)
[2021-06-10 05:16] LABS: Hemoglobin 7.9 g/dL (12.0-16.0); Mean Corpuscular HGB CONC 31.7 g/dL (32.0-36.0); Mean Corpuscular Volume 85.3 fL (78.0-98.0); Mean Platelet Volume 9.1 fL (7.4-10.4); Platelet Count 274 thou/uL (130-400); RBC Distribution Width 12.9 % (11.5-14.5); Red Blood Cell (RBC) Count 2.93 mill/uL (4.20-5.40); White Blood Cell (WBC) Count 20.8 thou/uL (4.8-10.8)
[2021-06-10 05:17] LABS: Band 3 % (5-11); Lymphocytes 9 % (21-51); MDiff Complete? YES; Monocytes 13 % (0-10); Neutrophil 75 % (42-75); Platelet Morphology Comment Appears Adequate
[2021-06-10] MEDS: Famotidine 20 MG TAB PO SCH ×2 (08:40→20:25)
[2021-06-10] MEDS: Dexamethasone 4 mg/ml Vial SLOW IVP SCH (08:41)
[2021-06-10] MEDS: Lorazepam 2 MG/ML VIAL SLOW IVP PRN (08:42)
[2021-06-10 09:53] LABS: Vancomycin, Trough 5.5 ug/mL
[2021-06-11] MEDS: MEROPENEM 1 GM/50 ML 1 GM in Premix Bag 1 BAG IVPB SCH ×4 (00:08→23:42)
[2021-06-11] MEDS: methylPREDNISolone Sod Succ 40 MG VIAL IVP SCH ×3 (00:30→23:43)
[2021-06-11] MEDS ORDERED: Fentanyl CADD 100 ML ONE ×2 (00:59→13:28)
[2021-06-11] MEDS: Fentanyl CADD 100 ML IV SCH (01:05)
[2021-06-11] MEDS: Propofol 1,000 MG/100 ML VIAL IV PRN ×6 (01:24→21:07)
[2021-06-11 01:28] LABS: Hemoglobin 8.4 g/dL (12.0-16.0)
[2021-06-11 05:14] LABS: Anion Gap 12 mmol/L (10-20); BUN (Urea Nitrogen) 12 mg/dL (7.0-18.7); Calc. Creatinine Clearance 147 mL/min (70-130); Calcium 8.9 mg/dL (7.8-10.44); Carbon Dioxide 28 mmol/L (22-29); Chloride 100 mmol/L (98-107); Glucose 128 mg/dL (70-105); Potassium 4.2 mmol/L (3.5-5.1); Sodium 136 mmol/L (136-145)
[2021-06-11 05:23] LABS: Band 4 % (5-11); Hemoglobin 8.3 g/dL (12.0-16.0); Lymphocytes 7 % (21-51); MDiff Complete? YES; Mean Corpuscular HGB CONC 32.6 g/dL (32.0-36.0); Mean Corpuscular Hemoglobin 27.8 pg (27.0-31.0); Mean Corpuscular Volume 85.2 fL (78.0-98.0); Mean Platelet Volume 7.9 fL (7.4-10.4); Metamyelocyte 1 % (0-0); Monocytes 2 % (0-10); Neutrophil 86 % (42-75); Platelet Count 314 thou/uL (130-400); Platelet Morphology Comment Appears Adequate; RBC Distribution Width 13.2 % (11.5-14.5); RBC Morphology Normal; Red Blood Cell (RBC) Count 2.97 mill/uL (4.20-5.40); White Blood Cell (WBC) Count 23.5 thou/uL (4.8-10.8)
[2021-06-11] MEDS ORDERED: hydrALAZINE 20 MG/ML VIAL SLOW IVP PRN (08:01)
[2021-06-11] MEDS: Famotidine 20 MG TAB PO SCH ×2 (09:06→21:07)
[2021-06-11] MEDS: Lorazepam 2 MG/ML VIAL SLOW IVP PRN ×2 (09:21→20:52)
[2021-06-11] MEDS: Dexamethasone 4 mg/ml Vial SLOW IVP SCH (09:31)
[2021-06-11] MEDS: Heparin 25,000 units/D5W 500 ML IV SCH (12:52)
[2021-06-11 17:21] LABS: EliA Vaculitis New Method **** NEW METHOD ****; Glomerular Basemt Membrane Ab Less than 1.9 EliAU/mL (<7 Negative)
[2021-06-11 17:45] LABS: Cardiolipin IgA Ab 7.7 APL-U/mL (<14 Negative); Cardiolipin IgG Ab 1.5 GPL-U/mL (<10 Negative); Cardiolipin IgM Ab 5.4 MPL-U/mL (<10 Negative); EliA APS New Method **** NEW METHOD ****; beta-2-Glycoprotein I IgA Ab 5.5 U/mL (<7 Negative); beta-2-Glycoprotein I IgG Ab 4.5 U/mL (<7 Negative); beta-2-Glycoprotein I IgM Abs Less than 2.9 U/mL (<7 Negative)
[2021-06-11 17:48] LABS: Smith D IgG Antibody 1.4 EliAU/mL (<7 Negative); dsDNA IgG Antibody 0.9 IU/mL (<10 Negative)
[2021-06-11 18:02] LABS: ANA Symphony (Qualitative) POSITIVE (Negative); ANA Symphony (Quantitative) 4.9 Ratio (< 0.7 Negative); CENP IgG Antibody Less than 0.4 EliAU/mL (<7 Negative); EliA RAS New Method **** NEW METHOD ****; Jo-1 IgG Antibody Less than 0.3 EliAU/mL (<7 Negative); RNP70 IgG Antibody Less than 0.3 EliAU/mL (<7 Negative); Rheumatoid Factor IgA Antibody 5.4 IU/mL (<14 Negative); Rheumatoid Factor IgM Antibody 5.9 IU/mL (<3.5 Negative); SSB/La IgG Antibody Less than 0.3 EliAU/mL (<7 Negative); Scleroderma-70 IgG Antibody Less than 0.6 EliAU/mL (<7 Negative); Smith D IgG Antibody 0.9 EliAU/mL (<7 Negative); dsDNA IgG Antibody 1.1 IU/mL (<10 Negative)
[2021-06-11] MEDS: Polyethylene Glycol 3350 17 GM Packet PER TUBE SCH (21:07)
[2021-06-12] MEDS: Propofol 1,000 MG/100 ML VIAL IV PRN ×8 (00:01→22:49)
[2021-06-12 00:17] LABS: Legionella Urinary Ag Negative (Negative); Strep pneumo Urine Ag NEGATIVE (NEGATIVE)
[2021-06-12] MEDS: Lorazepam 2 MG/ML VIAL SLOW IVP PRN ×5 (00:51→21:31)
[2021-06-12] MEDS ORDERED: Fentanyl CADD 100 ML ONE ×2 (02:15→14:54)
[2021-06-12] MEDS: Fentanyl CADD 100 ML IV SCH ×2 (02:25→14:57)
[2021-06-12 03:07] LABS: Band 2 % (5-11); Eosinophils 1 % (0-10); Hemoglobin 8.9 g/dL (12.0-16.0); Hypochromia SLIGHT = 6-15 cells (100X) (0-5/hpf); Lymphocytes 4 % (21-51); MDiff Complete? YES; Mean Corpuscular HGB CONC 32.7 g/dL (32.0-36.0); Mean Corpuscular Hemoglobin 27.9 pg (27.0-31.0); Mean Corpuscular Volume 85.4 fL (78.0-98.0); Mean Platelet Volume 7.9 fL (7.4-10.4); Monocytes 15 % (0-10); Neutrophil 78 % (42-75); Platelet Count 350 thou/uL (130-400); Platelet Morphology Comment Appears Adequate; RBC Distribution Width 13.3 % (11.5-14.5); Red Blood Cell (RBC) Count 3.19 mill/uL (4.20-5.40)
[2021-06-12] MEDS: Acetaminophen 325 MG TAB PO PRN (08:02)
[2021-06-12] MEDS: MEROPENEM 1 GM/50 ML 1 GM in Premix Bag 1 BAG IVPB SCH ×3 (08:02→23:20)
[2021-06-12] MEDS: Famotidine 20 MG TAB PO SCH ×2 (08:03→21:11)
[2021-06-12] MEDS: Polyethylene Glycol 3350 17 GM Packet PER TUBE SCH ×2 (08:03→21:11)
[2021-06-12 08:45] LABS: ALT (SGPT) 131 U/L (8-55); AST (SGOT) 93 U/L (5-34); Albumin 2.6 g/dL (3.5-5.0); Alkaline Phosphatase 82 U/L (40-110); Anion Gap 11 mmol/L (10-20); BUN (Urea Nitrogen) 11 mg/dL (7.0-18.7); Bilirubin, Total 0.5 mg/dL (0.2-1.2); Calc. Creatinine Clearance 234 mL/min (70-130); Calcium 8.8 mg/dL (7.8-10.44); Carbon Dioxide 27 mmol/L (22-29); Chloride 102 mmol/L (98-107); Globulin 3.9 g/dL (2.4-3.5); Glucose 119 mg/dL (70-105); Potassium 3.7 mmol/L (3.5-5.1); Protein, Total 6.5 g/dL (6.0-8.3); Sodium 136 mmol/L (136-145)
[2021-06-12 08:53] LABS: Actual Bicarbonate (HCO3a) 27.1 mEq/L (22-28); Base Excess (BEa) 3.3 mEq/L (-2.0 to +3.0); CO2 Tension 38.1 mmHg (35.0-45.0); Calcium, Ionized (arterial) 1.18 mmol/L (1.12-1.30); Carboxyhemoglobin (COHb) 0.3 gm% (0.0-3.0); Hemoglobin (Hb) 9.3 g/dL (12.0-16.0); O2 Tension (PaO2), arterial 87.9 mmHg (80.0-100.0); Potassium - ABG Lab 3.57 mmol/L (3.70-5.30); pH, Arterial 7.47 (7.35-7.45)
[2021-06-12 08:55] LABS: ALV-art Gradient 149.675 mmHg (0-20); Puncture Site RRA
[2021-06-12] MEDS ORDERED: Pantoprazole 40 MG VIAL IVP SCH (09:00)
[2021-06-12] MEDS: Heparin 25,000 units/D5W 500 ML IV SCH (09:47)
[2021-06-12] MEDS: methylPREDNISolone Sod Succ 40 MG VIAL IVP SCH ×2 (11:57→23:20)
[2021-06-13] MEDS: Lorazepam 2 MG/ML VIAL SLOW IVP PRN ×5 (00:47→19:24)
[2021-06-13] MEDS ORDERED: Fentanyl CADD 100 ML ONE ×2 (03:02→15:06)
[2021-06-13] MEDS: Fentanyl CADD 100 ML IV SCH ×2 (03:07→15:10)
[2021-06-13 05:28] LABS: Band 5 % (5-11); Lymphocytes 15 % (21-51); MDiff Complete? YES; Mean Corpuscular HGB CONC 32.5 g/dL (32.0-36.0); Mean Corpuscular Hemoglobin 27.8 pg (27.0-31.0); Mean Corpuscular Volume 85.3 fL (78.0-98.0); Metamyelocyte 2 % (0-0); Monocytes 11 % (0-10); Myelocyte 4 % (0-0); Neutrophil 63 % (42-75); Nucleated RBC 2 % (0); Platelet Count 380 thou/uL (130-400); Platelet Morphology Comment Appears Adequate; RBC Distribution Width 13.9 % (11.5-14.5); RBC Morphology Normal; Red Blood Cell (RBC) Count 3.24 mill/uL (4.20-5.40); White Blood Cell (WBC) Count 23.4 thou/uL (4.8-10.8)
[2021-06-13] MEDS: Propofol 1,000 MG/100 ML VIAL IV PRN ×6 (05:33→22:25)
[2021-06-13] MEDS: Acetaminophen 325 MG TAB PO PRN (08:29)
[2021-06-13] MEDS: MEROPENEM 1 GM/50 ML 1 GM in Premix Bag 1 BAG IVPB SCH ×3 (08:30→23:18)
[2021-06-13] MEDS: Famotidine 20 MG TAB PO SCH ×2 (08:30→19:24)
[2021-06-13] MEDS: Heparin 25,000 units/D5W 500 ML IV SCH (08:32)
[2021-06-13 08:34] LABS: Actual Bicarbonate (HCO3a) 29.8 mEq/L (22-28); Base Excess (BEa) 7.2 mEq/L (-2.0 to +3.0); CO2 Tension 35.4 mmHg (35.0-45.0); Calcium, Ionized (arterial) 1.14 mmol/L (1.12-1.30); O2 Tension (PaO2), arterial 70.1 mmHg (80.0-100.0); Potassium - ABG Lab 3.83 mmol/L (3.70-5.30); pH, Arterial 7.54 (7.35-7.45)
[2021-06-13 08:44] LABS: Puncture Site RRA
[2021-06-13] MEDS: Polyethylene Glycol 3350 17 GM Packet PER TUBE SCH ×2 (09:43→21:00)
[2021-06-13] MEDS: methylPREDNISolone Sod Succ 40 MG VIAL IVP SCH ×2 (11:38→23:17)
[2021-06-13 15:15] LABS: Cytoplasmic (C-ANCA) <1:20 titer (Neg:<1:20); Myeloperoxidase AutoAbs <9.0 U/mL (0.0-9.0); Perinuclear (P-ANCA) <1:20 titer (Neg:<1:20); Proteinase-3 AutoAbs Less than 3.5 U/mL (0.0-3.5)
[2021-06-14] MEDS: Propofol 1,000 MG/100 ML VIAL IV PRN ×7 (02:03→22:50)
[2021-06-14] MEDS ORDERED: Fentanyl CADD 100 ML ONE ×2 (03:46→15:48)
[2021-06-14] MEDS: Fentanyl CADD 100 ML IV SCH ×2 (03:51→16:46)
[2021-06-14] MEDS: Lorazepam 2 MG/ML VIAL SLOW IVP PRN ×4 (04:54→21:20)
[2021-06-14 05:05] LABS: Hypochromia SLIGHT = 6-15 cells (100X) (0-5/hpf); Lymphocytes 15 % (21-51); MDiff Complete? YES; Monocytes 10 % (0-10); Neutrophil 75 % (42-75); Platelet Morphology Comment Appears Adequate
[2021-06-14 05:06] LABS: Hemoglobin 8.9 g/dL (12.0-16.0); Mean Corpuscular HGB CONC 31.7 g/dL (32.0-36.0); Mean Corpuscular Hemoglobin 27.2 pg (27.0-31.0); Mean Corpuscular Volume 85.6 fL (78.0-98.0); Mean Platelet Volume 8.5 fL (7.4-10.4); Platelet Count 363 thou/uL (130-400); RBC Distribution Width 14.2 % (11.5-14.5); Red Blood Cell (RBC) Count 3.29 mill/uL (4.20-5.40); White Blood Cell (WBC) Count 18.4 thou/uL (4.8-10.8)
[2021-06-14] MEDS: MEROPENEM 1 GM/50 ML 1 GM in Premix Bag 1 BAG IVPB SCH ×3 (08:18→15:44)
[2021-06-14] MEDS: Acetaminophen 325 MG TAB PO PRN (08:18)
[2021-06-14] MEDS: Famotidine 20 MG TAB PO SCH ×2 (08:19→21:00)
[2021-06-14] MEDS: Polyethylene Glycol 3350 17 GM Packet PER TUBE SCH ×3 (08:20→21:03)
[2021-06-14 08:22] LABS: AST (SGOT) 58 U/L (5-34); Albumin 2.6 g/dL (3.5-5.0); Alkaline Phosphatase 80 U/L (40-110); Anion Gap 11 mmol/L (10-20); BUN (Urea Nitrogen) 15 mg/dL (7.0-18.7); Bilirubin, Total 0.4 mg/dL (0.2-1.2); Calc. Creatinine Clearance 250 mL/min (70-130); Calcium 8.8 mg/dL (7.8-10.44); Carbon Dioxide 27 mmol/L (22-29); Chloride 105 mmol/L (98-107); Globulin 3.9 g/dL (2.4-3.5); Glucose 104 mg/dL (70-105); Magnesium 1.9 mg/dL (1.6-2.6); Phosphorus 4.3 mg/dL (2.3-4.7); Protein, Total 6.5 g/dL (6.0-8.3); Sodium 139 mmol/L (136-145)
[2021-06-14 08:23] LABS: ALT (SGPT) 95 U/L (8-55)
[2021-06-14 08:28] LABS: Actual Bicarbonate (HCO3a) 27.8 mEq/L (22-28); Base Excess (BEa) 4.7 mEq/L (-2.0 to +3.0); CO2 Tension 35.4 mmHg (35.0-45.0); Calcium, Ionized (arterial) 1.12 mmol/L (1.12-1.30); Carboxyhemoglobin (COHb) 0.7 gm% (0.0-3.0); O2 Tension (PaO2), arterial 72.9 mmHg (80.0-100.0); Puncture Site RRA; pH, Arterial 7.51 (7.35-7.45)
[2021-06-14] MEDS: Heparin 25,000 units/D5W 500 ML IV SCH (08:32)
[2021-06-14] MEDS ORDERED: Magnesium 2 GM/50 ML 2 GM in Premix Bag 1 BAG IVPB SCH (10:00)
[2021-06-14] MEDS: methylPREDNISolone Sod Succ 40 MG VIAL IVP SCH (10:09)
[2021-06-14 16:18] LABS: Actual Bicarbonate (HCO3a) 29.8 mEq/L (22-28); Base Excess (BEa) 5.2 mEq/L (-2.0 to +3.0); CO2 Tension 43.7 mmHg (35.0-45.0); Calcium, Ionized (arterial) 1.18 mmol/L (1.12-1.30); Carboxyhemoglobin (COHb) 0.2 gm% (0.0-3.0); Hemoglobin (Hb) 10.2 g/dL (12.0-16.0); Potassium - ABG Lab 3.78 mmol/L (3.70-5.30); pH, Arterial 7.45 (7.35-7.45)
[2021-06-14 16:21] LABS: ALV-art Gradient 162.575 mmHg (0-20); Puncture Site RRA
[2021-06-15] MEDS: MEROPENEM 1 GM/50 ML 1 GM in Premix Bag 1 BAG IVPB SCH ×4 (00:48→23:00)
[2021-06-15] MEDS: Propofol 1,000 MG/100 ML VIAL IV PRN ×3 (02:20→08:20)
[2021-06-15 05:00] LABS: Band 2 % (5-11); Hemoglobin 8.8 g/dL (12.0-16.0); Lymphocytes 25 % (21-51); MDiff Complete? YES; Mean Corpuscular HGB CONC 32.7 g/dL (32.0-36.0); Mean Corpuscular Hemoglobin 28.4 pg (27.0-31.0); Mean Corpuscular Volume 86.7 fL (78.0-98.0); Mean Platelet Volume 8.3 fL (7.4-10.4); Metamyelocyte 2 % (0-0); Monocytes 4 % (0-10); Neutrophil 66 % (42-75); Platelet Count 342 thou/uL (130-400); Platelet Morphology Comment Appears Adequate; Polychromasia MODERATE = 3-4 cells (100X) (0-2/hpf); Reactive Lymphocytes 1 % (0-10)
[2021-06-15 05:07] LABS: ALT (SGPT) 86 U/L (8-55); AST (SGOT) 59 U/L (5-34); Albumin 2.6 g/dL (3.5-5.0); Alkaline Phosphatase 80 U/L (40-110); Anion Gap 12 mmol/L (10-20); BUN (Urea Nitrogen) 15 mg/dL (7.0-18.7); Bilirubin, Total 0.4 mg/dL (0.2-1.2); Calc. Creatinine Clearance 254 mL/min (70-130); Calcium 8.9 mg/dL (7.8-10.44); Carbon Dioxide 28 mmol/L (22-29); Chloride 104 mmol/L (98-107); Globulin 4.4 g/dL (2.4-3.5); Glucose 85 mg/dL (70-105); Magnesium 2.2 mg/dL (1.6-2.6); Phosphorus 4.2 mg/dL (2.3-4.7); Potassium 4.3 mmol/L (3.5-5.1); Sodium 140 mmol/L (136-145)
[2021-06-15] MEDS: Heparin 25,000 units/D5W 500 ML IV SCH (06:02)
[2021-06-15 07:49] LABS: Actual Bicarbonate (HCO3a) 27.3 mEq/L (22-28); Base Excess (BEa) 3.3 mEq/L (-2.0 to +3.0); CO2 Tension 39.4 mmHg (35.0-45.0); Calcium, Ionized (arterial) 1.17 mmol/L (1.12-1.30); Hemoglobin (Hb) 10.1 g/dL (12.0-16.0); O2 Tension (PaO2), arterial 74.4 mmHg (80.0-100.0); Potassium - ABG Lab 3.65 mmol/L (3.70-5.30); pH, Arterial 7.46 (7.35-7.45)
[2021-06-15 07:51] LABS: Puncture Site RRA
[2021-06-15] MEDS: Lorazepam 2 MG/ML VIAL SLOW IVP PRN ×3 (08:19→21:54)
[2021-06-15] MEDS: methylPREDNISolone Sod Succ 40 MG VIAL IVP SCH (08:20)
[2021-06-15] MEDS: Famotidine 20 MG TAB PO SCH ×2 (08:20→20:47)
[2021-06-15] MEDS ORDERED: Fentanyl CADD 100 ML ONE (08:27)
[2021-06-15] MEDS: Fentanyl CADD 100 ML IV SCH (08:39)
[2021-06-15] MEDS ORDERED: Metoprolol Tartrate 5 MG/5 ML VIAL IVP PRN ×2 (10:45→11:36)
[2021-06-15] MEDS: Polyethylene Glycol 3350 17 GM Packet PER TUBE SCH ×2 (11:00→20:47)
[2021-06-15] MEDS ORDERED: Scopolamine 1.5 mg/72 hour Patch TD SCH (18:45)
[2021-06-16 05:07] LABS: Mean Corpuscular HGB CONC 30.9 g/dL (32.0-36.0); Mean Corpuscular Hemoglobin 26.9 pg (27.0-31.0); Mean Corpuscular Volume 87.1 fL (78.0-98.0); Mean Platelet Volume 7.3 fL (7.4-10.4); Platelet Count 396 thou/uL (130-400); RBC Distribution Width 15.1 % (11.5-14.5); Red Blood Cell (RBC) Count 3.35 mill/uL (4.20-5.40); White Blood Cell (WBC) Count 11.5 thou/uL (4.8-10.8)
[2021-06-16 05:13] LABS: ALT (SGPT) 90 U/L (8-55); AST (SGOT) 60 U/L (5-34); Albumin 2.6 g/dL (3.5-5.0); Alkaline Phosphatase 91 U/L (40-110); Anion Gap 8 mmol/L (10-20); BUN (Urea Nitrogen) 13 mg/dL (7.0-18.7); Bilirubin, Total 0.5 mg/dL (0.2-1.2); Calc. Creatinine Clearance 240 mL/min (70-130); Calcium 8.9 mg/dL (7.8-10.44); Carbon Dioxide 28 mmol/L (22-29); Chloride 106 mmol/L (98-107); Glucose 99 mg/dL (70-105); Magnesium 1.8 mg/dL (1.6-2.6); Phosphorus 3.3 mg/dL (2.3-4.7); Potassium 3.4 mmol/L (3.5-5.1); Protein, Total 6.6 g/dL (6.0-8.3); Sodium 139 mmol/L (136-145)
[2021-06-16] MEDS ORDERED: Potassium Bicarbonate/Cit Ac 20 MEQ TAB PO SCH (05:45)
[2021-06-16] MEDS ORDERED: Magnesium 2 GM/50 ML 2 GM in Premix Bag 1 BAG IVPB SCH (05:45)
[2021-06-16] MEDS: Lorazepam 2 MG/ML VIAL SLOW IVP PRN ×3 (07:42→23:53)
[2021-06-16 07:58] LABS: Band 3 % (5-11); Lymphocytes 24 % (21-51); MDiff Complete? YES; Metamyelocyte 1 % (0-0); Monocytes 3 % (0-10); Neutrophil 69 % (42-75); Platelet Morphology Comment Appears Adequate; Polychromasia SLIGHT = 2-3 cells (100X) (0-2/hpf)
[2021-06-16 08:18] LABS: Actual Bicarbonate (HCO3a) 28.4 mEq/L (22-28); Base Excess (BEa) 5.1 mEq/L (-2.0 to +3.0); CO2 Tension 36.6 mmHg (35.0-45.0); Calcium, Ionized (arterial) 1.15 mmol/L (1.12-1.30); Carboxyhemoglobin (COHb) 0.2 gm% (0.0-3.0); Hemoglobin (Hb) 9.5 g/dL (12.0-16.0); O2 Tension (PaO2), arterial 76.9 mmHg (80.0-100.0); Potassium - ABG Lab 3.79 mmol/L (3.70-5.30); pH, Arterial 7.51 (7.35-7.45)
[2021-06-16 08:20] LABS: Puncture Site RRA
[2021-06-16] MEDS: methylPREDNISolone Sod Succ 40 MG VIAL IVP SCH (09:02)
[2021-06-16] MEDS: Famotidine 20 MG TAB PO SCH ×2 (09:03→21:33)
[2021-06-16] MEDS ORDERED: fentaNYL Citrate/PF 2,000 MCG in Sodium Chloride 0.9% 60 ML IV PRN (10:54)
[2021-06-16] MEDS: Polyethylene Glycol 3350 17 GM Packet PER TUBE SCH ×2 (12:07→21:34)
[2021-06-16] MEDS: Heparin 25,000 units/D5W 500 ML IV SCH (14:43)
[2021-06-16] MEDS: Fentanyl CADD 100 ML IV SCH (15:25)
[2021-06-16] MEDS: Fentanyl CADD 100 ML ONE ×2 (15:25→15:54)
[2021-06-17] MEDS: Lorazepam 2 MG/ML VIAL SLOW IVP PRN ×7 (01:17→16:28)
[2021-06-17 04:39] LABS: ALT (SGPT) 81 U/L (8-55); AST (SGOT) 63 U/L (5-34); Albumin 2.5 g/dL (3.5-5.0); Alkaline Phosphatase 74 U/L (40-110); Anion Gap 14 mmol/L (10-20); BUN (Urea Nitrogen) 9 mg/dL (7.0-18.7); Bilirubin, Total 0.5 mg/dL (0.2-1.2); Calc. Creatinine Clearance 230 mL/min (70-130); Calcium 8.7 mg/dL (7.8-10.44); Carbon Dioxide 24 mmol/L (22-29); Chloride 106 mmol/L (98-107); Globulin 3.9 g/dL (2.4-3.5); Glucose 103 mg/dL (70-105); Magnesium 1.9 mg/dL (1.6-2.6); Phosphorus 3.8 mg/dL (2.3-4.7); Potassium 3.6 mmol/L (3.5-5.1); Protein, Total 6.4 g/dL (6.0-8.3); Sodium 140 mmol/L (136-145)
[2021-06-17 04:50] LABS: Anisocytosis SLIGHT = 6-15 cells (100X) (0-5/hpf); Band 4 % (5-11); Eosinophils 1 % (0-10); Hemoglobin 8.5 g/dL (12.0-16.0); Hypochromia MODERATE=16-30 cells (100X) (0-5/hpf); Lymphocytes 25 % (21-51); MDiff Complete? YES; Mean Corpuscular HGB CONC 32.9 g/dL (32.0-36.0); Mean Corpuscular Hemoglobin 28.4 pg (27.0-31.0); Mean Corpuscular Volume 86.3 fL (78.0-98.0); Mean Platelet Volume 7.6 fL (7.4-10.4); Metamyelocyte 1 % (0-0); Monocytes 5 % (0-10); Neutrophil 60 % (42-75); Nucleated RBC 1 % (0); Platelet Count 308 thou/uL (130-400); Platelet Morphology Comment Appears Adequate; Polychromasia SLIGHT = 2-3 cells (100X) (0-2/hpf); RBC Distribution Width 14.8 % (11.5-14.5); Reactive Lymphocytes 3 % (0-10); Red Blood Cell (RBC) Count 2.98 mill/uL (4.20-5.40); White Blood Cell (WBC) Count 10.5 thou/uL (4.8-10.8)
[2021-06-17] MEDS ORDERED: Magnesium 2 GM/50 ML 2 GM in Premix Bag 1 BAG IVPB SCH (06:30)
[2021-06-17] MEDS: Famotidine 20 MG TAB PO SCH ×2 (08:10→19:48)
[2021-06-17] MEDS: methylPREDNISolone Sod Succ 40 MG VIAL IVP SCH (08:10)
[2021-06-17] MEDS: Polyethylene Glycol 3350 17 GM Packet PER TUBE SCH ×2 (08:11→19:48)
[2021-06-17] MEDS: Bacteriostatic Water 30 ML VIAL FS PRN (08:11)
[2021-06-17 08:35] LABS: Actual Bicarbonate (HCO3a) 26.7 mEq/L (22-28); Base Excess (BEa) 3.4 mEq/L (-2.0 to +3.0); CO2 Tension 35.2 mmHg (35.0-45.0); Calcium, Ionized (arterial) 1.16 mmol/L (1.12-1.30); Carboxyhemoglobin (COHb) 0.3 gm% (0.0-3.0); Hemoglobin (Hb) 9.1 g/dL (12.0-16.0); O2 Tension (PaO2), arterial 81.2 mmHg (80.0-100.0)
[2021-06-17 08:36] LABS: Puncture Site RRA
[2021-06-17] MEDS ORDERED: Fentanyl CADD 100 ML ONE (08:46)
[2021-06-17] MEDS: Fentanyl CADD 100 ML IV SCH (08:53)
[2021-06-17] MEDS: Glycopyrrolate 0.2 MG/ML 5 ML SYRINGE SLOW IVP PRN (09:20)
[2021-06-17] MEDS: ALPRAZolam 0.5 MG TAB PO SCH (19:48)
[2021-06-17] MEDS: Heparin 25,000 units/D5W 500 ML IV SCH (19:54)
[2021-06-18] MEDS: Lorazepam 2 MG/ML VIAL SLOW IVP PRN (02:13)
[2021-06-18 04:37] LABS: ALT (SGPT) 70 U/L (8-55); AST (SGOT) 52 U/L (5-34); Albumin 2.6 g/dL (3.5-5.0); Alkaline Phosphatase 75 U/L (40-110); Anion Gap 11 mmol/L (10-20); BUN (Urea Nitrogen) 10 mg/dL (7.0-18.7); Bilirubin, Total 0.5 mg/dL (0.2-1.2); Calc. Creatinine Clearance 250 mL/min (70-130); Calcium 8.9 mg/dL (7.8-10.44); Carbon Dioxide 26 mmol/L (22-29); Chloride 104 mmol/L (98-107); Globulin 3.8 g/dL (2.4-3.5); Glucose 105 mg/dL (70-105); Magnesium 1.7 mg/dL (1.6-2.6); Phosphorus 4.5 mg/dL (2.3-4.7); Potassium 3.4 mmol/L (3.5-5.1); Protein, Total 6.4 g/dL (6.0-8.3); Sodium 138 mmol/L (136-145)
[2021-06-18 04:41] LABS: Hemoglobin 8.3 g/dL (12.0-16.0); Mean Corpuscular HGB CONC 31.6 g/dL (32.0-36.0); Mean Corpuscular Hemoglobin 27.6 pg (27.0-31.0); Mean Corpuscular Volume 87.4 fL (78.0-98.0); Mean Platelet Volume 7.5 fL (7.4-10.4); Platelet Count 256 thou/uL (130-400); RBC Distribution Width 14.9 % (11.5-14.5); White Blood Cell (WBC) Count 7.3 thou/uL (4.8-10.8)
[2021-06-18] MEDS ORDERED: Magnesium 2 GM/50 ML 2 GM in Premix Bag 1 BAG IVPB SCH (04:45)
[2021-06-18] MEDS ORDERED: Potassium Bicarbonate/Cit Ac 20 MEQ TAB PO SCH (04:45)
[2021-06-18 05:28] LABS: #Lymphocytes 2.1 thou/uL (1.20-3.40); #Monocytes 0.4 thou/uL (0.11-0.59); #Neutrophils 4.7 thou/uL (1.40-6.50); %Basophils 0.6 % (0.0-1.0); %Eosinophils 0.4 % (0.0-10.0); %Lymphocytes 29.2 % (21.0-51.0); %Monocytes 5.9 % (0.0-10.0); RBC Morphology Normal
[2021-06-18] MEDS: ALPRAZolam 0.5 MG TAB PO SCH ×2 (08:03→20:27)
[2021-06-18] MEDS: methylPREDNISolone Sod Succ 40 MG VIAL IVP SCH (08:03)
[2021-06-18] MEDS: Famotidine 20 MG TAB PO SCH ×2 (08:03→20:27)
[2021-06-18] MEDS: Polyethylene Glycol 3350 17 GM Packet PER TUBE SCH ×2 (08:04→20:27)
[2021-06-18] MEDS: Glycopyrrolate 0.2 MG/ML 5 ML SYRINGE SLOW IVP PRN (09:41)
[2021-06-18] MEDS ORDERED: OLANZapine 10 MG VIAL IM PRN (13:10)
[2021-06-19] MEDS: Lorazepam 2 MG/ML VIAL SLOW IVP PRN ×2 (02:37→23:17)
[2021-06-19] MEDS: Heparin 25,000 units/D5W 500 ML IV SCH (03:29)
[2021-06-19 04:24] LABS: #Eosinphils 0.1 thou/uL (0.0-0.7); #Lymphocytes 1.7 thou/uL (1.20-3.40); #Monocytes 0.4 thou/uL (0.11-0.59); #Neutrophils 4.4 thou/uL (1.40-6.50); %Basophils 0.7 % (0.0-1.0); %Lymphocytes 25.2 % (21.0-51.0); %Monocytes 6.6 % (0.0-10.0); %Neutrophils 66.5 % (42.0-75.0); Hemoglobin 8.1 g/dL (12.0-16.0); Mean Corpuscular HGB CONC 32.1 g/dL (32.0-36.0); Mean Corpuscular Hemoglobin 27.8 pg (27.0-31.0); Mean Corpuscular Volume 86.6 fL (78.0-98.0); Mean Platelet Volume 7.6 fL (7.4-10.4); Platelet Count 267 thou/uL (130-400); Red Blood Cell (RBC) Count 2.91 mill/uL (4.20-5.40); White Blood Cell (WBC) Count 6.6 thou/uL (4.8-10.8)
[2021-06-19 04:43] LABS: ALT (SGPT) 72 U/L (8-55); AST (SGOT) 59 U/L (5-34); Albumin 2.7 g/dL (3.5-5.0); Alkaline Phosphatase 66 U/L (40-110); Anion Gap 13 mmol/L (10-20); BUN (Urea Nitrogen) 6 mg/dL (7.0-18.7); Bilirubin, Total 0.6 mg/dL (0.2-1.2); Calc. Creatinine Clearance 236 mL/min (70-130); Calcium 8.8 mg/dL (7.8-10.44); Carbon Dioxide 26 mmol/L (22-29); Chloride 108 mmol/L (98-107); Globulin 3.8 g/dL (2.4-3.5); Glucose 102 mg/dL (70-105); Magnesium 1.8 mg/dL (1.6-2.6); Phosphorus 4.7 mg/dL (2.3-4.7); Potassium 3.5 mmol/L (3.5-5.1); Protein, Total 6.5 g/dL (6.0-8.3); Sodium 143 mmol/L (136-145)
[2021-06-19] MEDS ORDERED: Potassium Bicarbonate/Cit Ac 20 MEQ TAB PO SCH (05:00)
[2021-06-19] MEDS ORDERED: Magnesium 2 GM/50 ML 2 GM in Premix Bag 1 BAG IVPB SCH (05:00)
[2021-06-19] MEDS ORDERED: Potassium Chloride 20 MEQ in Premix Bag 1 BAG IVPB SCH (05:45)
[2021-06-19] MEDS: ALPRAZolam 0.5 MG TAB PO SCH ×2 (08:03→21:48)
[2021-06-19] MEDS: Famotidine 20 MG TAB PO SCH ×2 (08:04→21:54)
[2021-06-19] MEDS: methylPREDNISolone Sod Succ 40 MG VIAL IVP SCH (08:04)
[2021-06-19] MEDS: Polyethylene Glycol 3350 17 GM Packet PER TUBE SCH ×2 (11:00→21:54)
[2021-06-19] MEDS ORDERED: Pantoprazole 40 MG VIAL IVP SCH (21:45)
[2021-06-19] MEDS: Lactated Ringer's 1,000 ML IV SCH (21:47)
[2021-06-19] MEDS: Acetaminophen 325 MG TAB PO PRN (21:56)
[2021-06-19] MEDS ORDERED: Loperamide HCl 2 MG CAP PO PRN ×2 (22:02)
[2021-06-19 22:24] LABS: Hemoglobin 9.2 g/dL (12.0-16.0); Platelet Count 316 thou/uL (130-400)
[2021-06-20 00:06] LABS: Troponin I 0.129 ng/mL (< 0.028)
[2021-06-20] MEDS ORDERED: Nitroglycerin 2% Ointment 1 INCH/1 GM Packet TOP SCH (00:45)
[2021-06-20 04:00] LABS: #Lymphocytes 1.6 thou/uL (1.20-3.40); #Monocytes 0.5 thou/uL (0.11-0.59); #Neutrophils 6.7 thou/uL (1.40-6.50); %Basophils 0.3 % (0.0-1.0); %Eosinophils 0.3 % (0.0-10.0); %Lymphocytes 17.8 % (21.0-51.0); %Monocytes 5.8 % (0.0-10.0); %Neutrophils 75.8 % (42.0-75.0); Hemoglobin 9.4 g/dL (12.0-16.0); Mean Corpuscular HGB CONC 32.6 g/dL (32.0-36.0); Mean Corpuscular Hemoglobin 28.3 pg (27.0-31.0); Mean Corpuscular Volume 86.7 fL (78.0-98.0); Platelet Count 263 thou/uL (130-400); Red Blood Cell (RBC) Count 3.33 mill/uL (4.20-5.40); White Blood Cell (WBC) Count 8.9 thou/uL (4.8-10.8)
[2021-06-20 04:16] LABS: ALT (SGPT) 78 U/L (8-55); AST (SGOT) 77 U/L (5-34); Alkaline Phosphatase 77 U/L (40-110); Anion Gap 16 mmol/L (10-20); BUN (Urea Nitrogen) 5 mg/dL (7.0-18.7); Bilirubin, Total 0.9 mg/dL (0.2-1.2); Calc. Creatinine Clearance 234 mL/min (70-130); Calcium 8.7 mg/dL (7.8-10.44); Carbon Dioxide 21 mmol/L (22-29); Chloride 105 mmol/L (98-107); Globulin 4.1 g/dL (2.4-3.5); Glucose 71 mg/dL (70-105); Magnesium 1.6 mg/dL (1.6-2.6); Potassium 3.7 mmol/L (3.5-5.1); Protein, Total 7.1 g/dL (6.0-8.3); Sodium 138 mmol/L (136-145)
[2021-06-20] MEDS: Acetaminophen 325 MG TAB PO PRN (05:16)
[2021-06-20] MEDS: Albuterol 200 PUFF (6.7GM INHALER) INH PRN (05:20)
[2021-06-20] MEDS: Lactated Ringer's 1,000 ML IV SCH ×3 (05:21→20:40)
[2021-06-20] MEDS ORDERED: GUAIFENESIN SF SOLN 200 MG/10 ML UDCUP PO PRN (08:47)
[2021-06-20] MEDS ORDERED: Pantoprazole 40 MG VIAL IVP SCH (09:00)
[2021-06-20] MEDS: methylPREDNISolone Sod Succ 40 MG VIAL IVP SCH (09:17)
[2021-06-20] MEDS: ALPRAZolam 0.5 MG TAB PO SCH ×2 (09:17→20:39)
[2021-06-20] MEDS: Polyethylene Glycol 3350 17 GM Packet PER TUBE SCH ×2 (09:18→19:27)
[2021-06-20] MEDS ORDERED: Simethicone 40 MG/0.6 ML Drop 30 ML BOT PO PRN (10:05)
[2021-06-20] MEDS ORDERED: Simethicone Chewable 80 MG TAB PO PRN (10:08)
[2021-06-20] MEDS: Apixaban 5 MG TAB PO SCH ×2 (12:00→20:39)
[2021-06-20] MEDS ORDERED: Melatonin 3 MG TAB PO PRN (19:00)
[2021-06-20] MEDS: Melatonin 3 MG TAB PO PRN (20:39)
[2021-06-20] MEDS ORDERED: diphenhydrAMINE 50 MG/ML VIAL IVP SCH (23:15)
[2021-06-21] MEDS: Benzonatate 100 MG CAP PO PRN (04:27)
[2021-06-21] MEDS: Acetaminophen 325 MG TAB PO PRN (04:29)
[2021-06-21] MEDS: Lactated Ringer's 1,000 ML IV SCH (04:40)
[2021-06-21] MEDS: hydrOXYzine 25 MG TAB PO PRN (04:40)
[2021-06-21] MEDS: guaiFENesin/Codeine 200 mg/20 mg 10 ml Cup PO PRN (04:40)
[2021-06-21] MEDS: Labetalol HCl 100 MG/20 ML VIAL SLOW IVP PRN ×2 (04:40→22:14)
[2021-06-21] MEDS ORDERED: Lactated Ringer's 1,000 ML IV SCH (06:41)
[2021-06-21] MEDS ORDERED: Piperacillin/Tazobactam 3.375 GM in Sodium Chloride 0.9% 100 ML IVPB SCH ×2 (09:15→09:30)
[2021-06-21] MEDS: methylPREDNISolone Sod Succ 40 MG VIAL IVP SCH (09:29)
[2021-06-21] MEDS: Apixaban 5 MG TAB PO SCH ×2 (09:29→20:43)
[2021-06-21] MEDS: ALPRAZolam 0.5 MG TAB PO SCH ×2 (09:29→20:43)
[2021-06-21] MEDS: Polyethylene Glycol 3350 17 GM Packet PER TUBE SCH ×2 (09:30→20:44)
[2021-06-21] MEDS ORDERED: Vancomycin HCl 1.25 GM in Sodium Chloride 0.9% 250 ML 250 ML IVPB SCH (10:00)
[2021-06-21 10:58] LABS: ALT (SGPT) 71 U/L (8-55); AST (SGOT) 71 U/L (5-34); Alkaline Phosphatase 69 U/L (40-110); Anion Gap 16 mmol/L (10-20); BUN (Urea Nitrogen) 4 mg/dL (7.0-18.7); Calc. Creatinine Clearance 207 mL/min (70-130); Calcium 8.8 mg/dL (7.8-10.44); Carbon Dioxide 23 mmol/L (22-29); Chloride 105 mmol/L (98-107); Globulin 4.3 g/dL (2.4-3.5); Glucose 83 mg/dL (70-105); Potassium 3.7 mmol/L (3.5-5.1); Protein, Total 7.3 g/dL (6.0-8.3); Sodium 140 mmol/L (136-145)
[2021-06-21] MEDS: Vancomycin HCl 1.25 GM in Sodium Chloride 0.9% 250 ML 250 ML IVPB SCH ×2 (11:25→18:13)
[2021-06-21 11:39] LABS: Band 6 % (5-11); Hemoglobin 8.9 g/dL (12.0-16.0); Lymphocytes 21 % (21-51); MDiff Complete? YES; Mean Corpuscular HGB CONC 31.9 g/dL (32.0-36.0); Mean Corpuscular Hemoglobin 27.7 pg (27.0-31.0); Mean Corpuscular Volume 86.9 fL (78.0-98.0); Mean Platelet Volume 7.7 fL (7.4-10.4); Monocytes 13 % (0-10); Neutrophil 60 % (42-75); Platelet Count 304 thou/uL (130-400); Platelet Morphology Comment Appears Adequate; Polychromasia SLIGHT = 2-3 cells (100X) (0-2/hpf); RBC Distribution Width 15.2 % (11.5-14.5); Red Blood Cell (RBC) Count 3.22 mill/uL (4.20-5.40); White Blood Cell (WBC) Count 15.4 thou/uL (4.8-10.8)
[2021-06-21 12:20] LABS: Bacteria/HPF None Seen HPF (None Seen); Bilirubin Negative (Negative); Blood, Urine 3+ (Negative); Clarity Clear (Clear); Glucose, Urine (Dipstick) Normal (Negative); Ketone, Urine 60 mg/dL (Negative); Leukocyte 25 Leu/uL (Negative); Mucous/LPF Rare LPF (<2+); Nitrite Negative (Negative); Protein, Urine (Dipstick) 70 mg/dL (Neg-Trace); RBC/HPF 21-50 HPF (0-3); Renal Epithelial 0-3 HPF (None Seen); Specific Gravity, Urine 1.019 (1.002-1.036); Squamous Epithelial 0-3 HPF (0-3); Urobilinogen 6 mg/dL (Less than 2); pH, Urine 5.5 (5.0-9.0)
[2021-06-21 12:21] LABS: Urine Culture Reflex Yes Yes
[2021-06-21] MEDS ORDERED: Chlorthalidone 25 MG TAB PO SCH (14:15)
[2021-06-21] MEDS: Piperacillin/Tazobactam 3.375 GM in Sodium Chloride 0.9% 100 ML IVPB SCH (18:13)
[2021-06-21] MEDS: Melatonin 3 MG TAB PO PRN (20:43)
[2021-06-22] MEDS: hydrOXYzine 25 MG TAB PO PRN (02:34)
[2021-06-22] MEDS: Labetalol HCl 100 MG/20 ML VIAL SLOW IVP PRN ×2 (02:34→11:28)
[2021-06-22] MEDS: guaiFENesin/Codeine 200 mg/20 mg 10 ml Cup PO PRN ×2 (02:34→20:35)
[2021-06-22] MEDS: Vancomycin HCl 1.25 GM in Sodium Chloride 0.9% 250 ML 250 ML IVPB SCH ×2 (02:36→11:00)
[2021-06-22 03:45] LABS: #Basophils 0.1 thou/uL (0.0-0.2); #Lymphocytes 2.2 thou/uL (1.20-3.40); #Monocytes 0.7 thou/uL (0.11-0.59); #Neutrophils 10.5 thou/uL (1.40-6.50); %Basophils 0.5 % (0.0-1.0); %Eosinophils 0.3 % (0.0-10.0); %Lymphocytes 16.5 % (21.0-51.0); %Monocytes 4.9 % (0.0-10.0); %Neutrophils 77.8 % (42.0-75.0); Hemoglobin 8.5 g/dL (12.0-16.0); Mean Corpuscular HGB CONC 31.9 g/dL (32.0-36.0); Mean Corpuscular Hemoglobin 27.6 pg (27.0-31.0); Mean Corpuscular Volume 86.5 fL (78.0-98.0); Mean Platelet Volume 7.3 fL (7.4-10.4); Platelet Count 291 thou/uL (130-400); RBC Distribution Width 14.8 % (11.5-14.5); Red Blood Cell (RBC) Count 3.06 mill/uL (4.20-5.40); White Blood Cell (WBC) Count 13.6 thou/uL (4.8-10.8)
[2021-06-22 03:57] LABS: ALT (SGPT) 64 U/L (8-55); AST (SGOT) 58 U/L (5-34); Albumin 3.2 g/dL (3.5-5.0); Alkaline Phosphatase 74 U/L (40-110); Anion Gap 16 mmol/L (10-20); BUN (Urea Nitrogen) 7 mg/dL (7.0-18.7); Bilirubin, Total 0.8 mg/dL (0.2-1.2); Calc. Creatinine Clearance 207 mL/min (70-130); Carbon Dioxide 25 mmol/L (22-29); Chloride 102 mmol/L (98-107); Globulin 4.4 g/dL (2.4-3.5); Glucose 88 mg/dL (70-105); Lactic Acid 1.4 mmol/L (0.5-2.2); Magnesium 1.7 mg/dL (1.6-2.6); Phosphorus 3.6 mg/dL (2.3-4.7); Potassium 3.3 mmol/L (3.5-5.1); Protein, Total 7.6 g/dL (6.0-8.3); Sodium 140 mmol/L (136-145)
[2021-06-22] MEDS: Piperacillin/Tazobactam 3.375 GM in Sodium Chloride 0.9% 100 ML IVPB SCH ×3 (04:03→18:51)
[2021-06-22] MEDS ORDERED: Potassium Chloride 20 MEQ in Premix Bag 1 BAG IVPB SCH (07:15)
[2021-06-22] MEDS: ALPRAZolam 0.5 MG TAB PO SCH ×2 (09:24→20:36)
[2021-06-22] MEDS: Chlorthalidone 25 MG TAB PO SCH (09:24)
[2021-06-22] MEDS: methylPREDNISolone Sod Succ 40 MG VIAL IVP SCH (09:24)
[2021-06-22] MEDS: Apixaban 5 MG TAB PO SCH ×2 (09:24→20:36)
[2021-06-22] MEDS: Polyethylene Glycol 3350 17 GM Packet PER TUBE SCH ×2 (09:25→20:36)
[2021-06-22 09:31] LABS: Vancomycin, Trough 25.1 ug/mL
[2021-06-22] MEDS: Vancomycin 1 GM in Premix Bag 1 BAG IVPB SCH ×2 (12:58→20:35)
[2021-06-22] MEDS: Melatonin 3 MG TAB PO PRN (20:36)
[2021-06-23] MEDS: Piperacillin/Tazobactam 3.375 GM in Sodium Chloride 0.9% 100 ML IVPB SCH ×3 (01:53→18:31)
[2021-06-23] MEDS: guaiFENesin/Codeine 200 mg/20 mg 10 ml Cup PO PRN (03:01)
[2021-06-23] MEDS: Vancomycin 1 GM in Premix Bag 1 BAG IVPB SCH ×2 (05:10→13:17)
[2021-06-23] MEDS ORDERED: ALPRAZolam 0.5 MG TAB PO PRN ×2 (07:40)
[2021-06-23 08:45] LABS: Anion Gap 11 mmol/L (10-20); BUN (Urea Nitrogen) 10 mg/dL (7.0-18.7); Calc. Creatinine Clearance 122 mL/min (70-130); Calcium 8.9 mg/dL (7.8-10.44); Carbon Dioxide 28 mmol/L (22-29); Chloride 102 mmol/L (98-107); Glucose 104 mg/dL (70-105); Sodium 138 mmol/L (136-145)
[2021-06-23 08:48] LABS: Band 7 % (5-11); Eosinophils 1 % (0-10); Hemoglobin 9.2 g/dL (12.0-16.0); Lymphocytes 12 % (21-51); MDiff Complete? YES; Mean Corpuscular HGB CONC 32.1 g/dL (32.0-36.0); Mean Corpuscular Hemoglobin 27.4 pg (27.0-31.0); Mean Corpuscular Volume 85.4 fL (78.0-98.0); Mean Platelet Volume 7.8 fL (7.4-10.4); Monocytes 8 % (0-10); Neutrophil 71 % (42-75); Platelet Count 385 thou/uL (130-400); Platelet Morphology Comment Appears Adequate; Polychromasia SLIGHT = 2-3 cells (100X) (0-2/hpf); RBC Distribution Width 14.8 % (11.5-14.5); Red Blood Cell (RBC) Count 3.34 mill/uL (4.20-5.40); White Blood Cell (WBC) Count 11.4 thou/uL (4.8-10.8)
[2021-06-23] MEDS: Chlorthalidone 25 MG TAB PO SCH (09:55)
[2021-06-23] MEDS: Apixaban 5 MG TAB PO SCH ×2 (09:56→21:19)
[2021-06-23] MEDS: predniSONE 20 MG TAB PO SCH (09:56)
[2021-06-23] MEDS: Polyethylene Glycol 3350 17 GM Packet PER TUBE SCH ×2 (09:56→19:43)
[2021-06-23] MEDS: Potassium Chloride 20 MEQ in Premix Bag 1 BAG IVPB SCH ×2 (10:02→13:17)
[2021-06-23] MEDS ORDERED: Vancomycin 1 GM in Premix Bag 1 BAG IVPB SCH (15:00)
[2021-06-23 20:45] LABS: Vancomycin, Trough 32.4 ug/mL
[2021-06-23] MEDS: Melatonin 3 MG TAB PO PRN (21:19)
[2021-06-24] MEDS: guaiFENesin/Codeine 200 mg/20 mg 10 ml Cup PO PRN ×2 (02:25→22:53)
[2021-06-24] MEDS: Piperacillin/Tazobactam 3.375 GM in Sodium Chloride 0.9% 100 ML IVPB SCH ×3 (02:25→18:15)
[2021-06-24] MEDS: Chlorthalidone 25 MG TAB PO SCH (08:56)
[2021-06-24] MEDS: predniSONE 20 MG TAB PO SCH (08:57)
[2021-06-24] MEDS: Apixaban 5 MG TAB PO SCH ×2 (08:57→20:25)
[2021-06-24] MEDS: Polyethylene Glycol 3350 17 GM Packet PER TUBE SCH ×3 (10:18→20:33)
[2021-06-24 13:32] LABS: Vancomycin, Random 17.2 ug/mL (See Comment)
[2021-06-24] MEDS: Vancomycin HCl 750 MG in Sodium Chloride 0.9% 250 ML 250 ML IVPB SCH (14:28)
[2021-06-24] MEDS: Benzonatate 100 MG CAP PO PRN (20:25)
[2021-06-24] MEDS: Melatonin 3 MG TAB PO PRN (20:26)
[2021-06-25 01:49] LABS: Vancomycin, Trough 20.7 ug/mL
[2021-06-25] MEDS: Piperacillin/Tazobactam 3.375 GM in Sodium Chloride 0.9% 100 ML IVPB SCH ×2 (02:23→09:15)
[2021-06-25] MEDS: Vancomycin HCl 750 MG in Sodium Chloride 0.9% 250 ML 250 ML IVPB SCH (02:24)
[2021-06-25 04:34] LABS: Anion Gap 16 mmol/L (10-20); BUN (Urea Nitrogen) 19 mg/dL (7.0-18.7); Calc. Creatinine Clearance 77 mL/min (70-130); Calcium 9.4 mg/dL (7.8-10.44); Carbon Dioxide 27 mmol/L (22-29); Chloride 103 mmol/L (98-107); Glucose 90 mg/dL (70-105); Potassium 2.8 mmol/L (3.5-5.1); Sodium 143 mmol/L (136-145)
[2021-06-25] MEDS ORDERED: Potassium Chloride 20 MEQ TAB PO SCH ×2 (04:45→07:00)
[2021-06-25] MEDS ORDERED: Potassium Chloride 20 MEQ in Premix Bag 1 BAG IVPB SCH ×2 (05:15→07:15)
[2021-06-25] MEDS: Lactated Ringer's 1,000 ML IV SCH ×3 (05:39→21:14)
[2021-06-25] MEDS ORDERED: Vancomycin 1 GM in Premix Bag 1 BAG IVPB SCH (06:00)
[2021-06-25 08:39] LABS: Magnesium 1.9 mg/dL (1.6-2.6); Phosphorus 3.6 mg/dL (2.3-4.7)
[2021-06-25] MEDS: Apixaban 5 MG TAB PO SCH ×2 (09:11→21:14)
[2021-06-25] MEDS: predniSONE 20 MG TAB PO SCH (09:11)
[2021-06-25] MEDS: Polyethylene Glycol 3350 17 GM Packet PER TUBE SCH ×2 (09:12→21:15)
[2021-06-25 09:50] LABS: Anion Gap 14 mmol/L (10-20); BUN (Urea Nitrogen) 18 mg/dL (7.0-18.7); Calc. Creatinine Clearance 78 mL/min (70-130); Calcium 9.1 mg/dL (7.8-10.44); Carbon Dioxide 28 mmol/L (22-29); Chloride 103 mmol/L (98-107); Glucose 98 mg/dL (70-105); Sodium 142 mmol/L (136-145)
[2021-06-25] MEDS: Amlodipine 5 MG TAB PO SCH (10:00)
[2021-06-25] MEDS ORDERED: Potassium Chloride 40 MEQ in Sodium Chloride 0.9% 250 ML 250 ML IVPB SCH (13:00)
[2021-06-25] MEDS: guaiFENesin/Codeine 200 mg/20 mg 10 ml Cup PO PRN (23:50)
[2021-06-26] MEDS: Lactated Ringer's 1,000 ML IV SCH ×4 (04:11→20:40)
[2021-06-26] MEDS: Cefdinir 300 MG CAP PO SCH (08:01)
[2021-06-26] MEDS: predniSONE 20 MG TAB PO SCH (08:02)
[2021-06-26] MEDS: Apixaban 5 MG TAB PO SCH ×2 (08:02→20:40)
[2021-06-26] MEDS: Amlodipine 5 MG TAB PO SCH (08:03)
[2021-06-26] MEDS: Polyethylene Glycol 3350 17 GM Packet PER TUBE SCH ×2 (08:13→20:41)
[2021-06-26] MEDS ORDERED: Potassium Chloride 40 MEQ in Sodium Chloride 0.9% 250 ML 250 ML IVPB SCH (08:45)
[2021-06-26 09:31] LABS: Anion Gap 15 mmol/L (10-20); BUN (Urea Nitrogen) 17 mg/dL (7.0-18.7); Calc. Creatinine Clearance 89 mL/min (70-130); Calcium 9.1 mg/dL (7.8-10.44); Carbon Dioxide 25 mmol/L (22-29); Chloride 102 mmol/L (98-107); Glucose 97 mg/dL (70-105); Potassium 3.2 mmol/L (3.5-5.1); Sodium 139 mmol/L (136-145)
[2021-06-26 11:44] VITALS: BMI 33.2
[2021-06-27] MEDS: Lactated Ringer's 1,000 ML IV SCH ×3 (03:56→20:40)
[2021-06-27 07:01] LABS: Anion Gap 17 mmol/L (10-20); BUN (Urea Nitrogen) 17 mg/dL (7.0-18.7); Calc. Creatinine Clearance 94 mL/min (70-130); Carbon Dioxide 22 mmol/L (22-29); Chloride 104 mmol/L (98-107); Glucose 78 mg/dL (70-105); Potassium 3.6 mmol/L (3.5-5.1); Sodium 139 mmol/L (136-145)
[2021-06-27] MEDS: Cefdinir 300 MG CAP PO SCH (09:50)
[2021-06-27] MEDS: Apixaban 5 MG TAB PO SCH ×2 (09:50→20:39)
[2021-06-27] MEDS: predniSONE 20 MG TAB PO SCH (09:50)
[2021-06-27] MEDS: Amlodipine 5 MG TAB PO SCH (09:51)
[2021-06-27] MEDS: Polyethylene Glycol 3350 17 GM Packet PER TUBE SCH ×2 (09:51→20:40)
[2021-06-27] MEDS: Benzonatate 100 MG CAP PO PRN (15:53)
[2021-06-27] MEDS ORDERED: Ondansetron ODT 4 MG TAB PO PRN (17:31)
[2021-06-27] MEDS: Melatonin 3 MG TAB PO PRN (20:44)
[2021-06-28] MEDS: Lactated Ringer's 1,000 ML IV SCH ×3 (05:20→21:10)
[2021-06-28 07:16] LABS: Anion Gap 17 mmol/L (10-20); BUN (Urea Nitrogen) 16 mg/dL (7.0-18.7); Calc. Creatinine Clearance 101 mL/min (70-130); Calcium 8.9 mg/dL (7.8-10.44); Carbon Dioxide 22 mmol/L (22-29); Chloride 103 mmol/L (98-107); Glucose 72 mg/dL (70-105); Potassium 3.6 mmol/L (3.5-5.1); Sodium 138 mmol/L (136-145)
[2021-06-28] MEDS ORDERED: Sulfameth/Trimethoprim DS 800-160mg TAB PO SCH (09:00)
[2021-06-28] MEDS: Benzonatate 100 MG CAP PO PRN (09:20)
[2021-06-28] MEDS: Cefdinir 300 MG CAP PO SCH (09:20)
[2021-06-28] MEDS: Amlodipine 5 MG TAB PO SCH (09:20)
[2021-06-28] MEDS: Polyethylene Glycol 3350 17 GM Packet PER TUBE SCH ×2 (09:21→21:15)
[2021-06-28] MEDS: predniSONE 5 MG TAB PO SCH (09:21)
[2021-06-28] MEDS ORDERED: Apixaban 5 MG TAB PO SCH (12:15)
[2021-06-28] MEDS: Diclofenac 1% 100 GM GEL TP SCH ×3 (15:37→21:11)
[2021-06-28] MEDS: Apixaban 5 MG TAB PO SCH (21:10)
[2021-06-28] MEDS: Melatonin 3 MG TAB PO PRN (21:10)
[2021-06-28] MEDS: guaiFENesin/Codeine 200 mg/20 mg 10 ml Cup PO PRN (21:11)
[2021-06-29] MEDS: Lactated Ringer's 1,000 ML IV SCH ×2 (05:34→14:19)
[2021-06-29 09:16] LABS: Anion Gap 17 mmol/L (10-20); BUN (Urea Nitrogen) 13 mg/dL (7.0-18.7); Calc. Creatinine Clearance 107 mL/min (70-130); Calcium 8.9 mg/dL (7.8-10.44); Carbon Dioxide 20 mmol/L (22-29); Chloride 102 mmol/L (98-107); Glucose 63 mg/dL (70-105); Potassium 3.6 mmol/L (3.5-5.1); Sodium 135 mmol/L (136-145)
[2021-06-29] MEDS: predniSONE 5 MG TAB PO SCH (09:24)
[2021-06-29] MEDS: Apixaban 5 MG TAB PO SCH (09:24)
[2021-06-29] MEDS: Amlodipine 5 MG TAB PO SCH (09:25)
[2021-06-29] MEDS: Cefdinir 300 MG CAP PO SCH (09:26)
[2021-06-29] MEDS: Diclofenac 1% 100 GM GEL TP SCH ×2 (09:27→14:19)
[2021-06-29] MEDS: Polyethylene Glycol 3350 17 GM Packet PER TUBE SCH (09:28)
[2021-06-29 09:47] LABS: #Eosinphils 0.1 thou/uL (0.0-0.7); #Lymphocytes 1.5 thou/uL (1.20-3.40); #Monocytes 0.5 thou/uL (0.11-0.59); #Neutrophils 5.4 thou/uL (1.40-6.50); %Basophils 0.3 % (0.0-1.0); %Eosinophils 0.9 % (0.0-10.0); %Lymphocytes 20.5 % (21.0-51.0); %Monocytes 6.8 % (0.0-10.0); %Neutrophils 71.5 % (42.0-75.0); Hemoglobin 9.5 g/dL (12.0-16.0); Mean Corpuscular Hemoglobin 26.4 pg (27.0-31.0); Mean Corpuscular Volume 85.1 fL (78.0-98.0); Mean Platelet Volume 7.9 fL (7.4-10.4); Platelet Count 696 thou/uL (130-400); Red Blood Cell (RBC) Count 3.62 mill/uL (4.20-5.40); White Blood Cell (WBC) Count 7.5 thou/uL (4.8-10.8)
[2021-06-29 14:26] VITALS: BP 136/97; TEMP 98.8
== END 2021-06-29 15:20 | DRG 870 ==
LOC: ERS 11:05 → T4-B 12:37 → OBSVTOIN 05-30 11:43 → IMCU/EMU 06-02 07:01 → CCU 06-04 14:14 → IMCU/EMU 06-19 18:01 → T4-A 06-25 17:23
PROVIDERS: ADMIT Student in an Organized Health Care Education/Training Program; ATTEND Student in an Organized Health Care Education/Training Program
PROC: 8E0ZXY6 Isolation (ICD-10-PCS; 2021-05-29)
PROC: XW033E5 Introduction of Remdesivir Anti-infective into Peripheral Vein, Percutaneous Approach, New Technology Group 5 (ICD-10-PCS; principal; 2021-06-02)
PROC: 5A09457 Assistance with Respiratory Ventilation, 24-96 Consecutive Hours, Continuous Positive Airway Pressure (ICD-10-PCS; 2021-06-02)
PROC: 5A1955Z Respiratory Ventilation, Greater than 96 Consecutive Hours (ICD-10-PCS; 2021-06-04)
PROC: 0DH67UZ Insertion of Feeding Device into Stomach, Via Natural or Artificial Opening (ICD-10-PCS; 2021-06-04)
PROC: 0BH17EZ Insertion of Endotracheal Airway into Trachea, Via Natural or Artificial Opening (ICD-10-PCS; 2021-06-04)
PROC: 0B9F8ZX Drainage of Right Lower Lung Lobe, Via Natural or Artificial Opening Endoscopic, Diagnostic (ICD-10-PCS; 2021-06-08)
PROC: 5A0935A Assistance with Respiratory Ventilation, Less than 24 Consecutive Hours, High Flow/Velocity Cannula (ICD-10-PCS; 2021-06-18)
DX: A41.89 Other specified sepsis (principal); U07.1 COVID-19; J12.82 Pneumonia due to coronavirus disease 2019; J96.01 Acute respiratory failure with hypoxia; I21.A1 Myocardial infarction type 2; I26.99 Other pulmonary embolism without acute cor pulmonale; J85.0 Gangrene and necrosis of lung; J98.11 Atelectasis; E87.2 Acidosis; A08.39 Other viral enteritis; N39.0 Urinary tract infection, site not specified; E87.3 Alkalosis; I31.3 Pericardial effusion (noninflammatory); R04.2 Hemoptysis; E87.1 Hypo-osmolality and hyponatremia; R04.89 Hemorrhage from other sites in respiratory passages; K92.0 Hematemesis; F19.939 Other psychoactive substance use, unspecified with withdrawal, unspecified; M06.9 Rheumatoid arthritis, unspecified; E86.0 Dehydration; E86.1 Hypovolemia; D75.1 Secondary polycythemia; B96.20 Unspecified Escherichia coli [E. coli] as the cause of diseases classified elsewhere; E86.9 Volume depletion, unspecified; E66.9 Obesity, unspecified; I08.1 Rheumatic disorders of both mitral and tricuspid valves; F41.9 Anxiety disorder, unspecified; F32.9 Major depressive disorder, single episode, unspecified; R79.1 Abnormal coagulation profile; E87.6 Hypokalemia; R45.1 Restlessness and agitation; R60.9 Edema, unspecified; R07.89 Other chest pain; R13.10 Dysphagia, unspecified; R47.1 Dysarthria and anarthria; D64.9 Anemia, unspecified; E83.42 Hypomagnesemia; G47.00 Insomnia, unspecified; R49.0 Dysphonia; R00.0 Tachycardia, unspecified; Z68.33 Body mass index [BMI] 33.0-33.9, adult; Z79.899 Other long term (current) drug therapy; Z91.14 Patient's other noncompliance with medication regimen; Z98.890 Other specified postprocedural states; Z82.49 Family history of ischemic heart disease and other diseases of the circulatory system; Z78.1 Physical restraint status
CPT/HCPCS: 0240U; 31624; 36415; 36416; 36600; 71045; 71275; 74018; 74230; 80048; 80053; 80076; 80202; 81001; 81003; 81015; 82271; 82805; 83516; 83520; 83605; 83690; 83735; 83880; 83930; 83935; 84100; 84145; 84300; 84484; 84703; 85007; 85014; 85018; 85025; 85027; 85049; 85060; 85240; 85250; 85520; 85598; 85610; 85613; 85730; 86038; 86140; 86146; 86147; 86160; 86200; 86225; 86235; 86256; 86850; 86900; 86901; 87040; 87070; 87077; 87086; 87186; 87205; 87324; 87449; 87899; 93005; 93010; 93306; 93923; 93970; 94002; 94003; 94660; 96365; 96375; C9113; G0378; J0456; J0692; J0696; J1100; J1200; J1644; J1650; J1940; J2060; J2185; J2250; J2358; J2405; J2543; J2704; J2920; J3010; J3370; J3475; J3480; J3490; J7030; J7050; J7120; J7512; J7620; J8540; Q0162; Q9967; S0028; U0003; U0005

== ENCOUNTER 2021-07-19 21:05 | Observation (INO) | payer OTHER ==
[2021-07-19] MEDS ORDERED: Aspirin Chewable 81 MG TAB ONE (22:51)
[2021-07-20 00:13] LABS: #Eosinphils 0.2 thou/uL (0.0-0.7); #Lymphocytes 2.2 thou/uL (1.20-3.40); #Monocytes 0.3 thou/uL (0.11-0.59); #Neutrophils 3.9 thou/uL (1.40-6.50); %Basophils 0.4 % (0.0-1.0); %Eosinophils 2.4 % (0.0-10.0); %Lymphocytes 33.3 % (21.0-51.0); %Monocytes 4.5 % (0.0-10.0); %Neutrophils 59.4 % (42.0-75.0); Hemoglobin 10.4 g/dL (12.0-16.0); Mean Corpuscular HGB CONC 32.5 g/dL (32.0-36.0); Mean Corpuscular Hemoglobin 27.6 pg (27.0-31.0); Mean Corpuscular Volume 85.1 fL (78.0-98.0); Platelet Count 364 thou/uL (130-400); RBC Distribution Width 15.9 % (11.5-14.5); Red Blood Cell (RBC) Count 3.76 mill/uL (4.20-5.40); White Blood Cell (WBC) Count 6.6 thou/uL (4.8-10.8)
[2021-07-20 00:24] LABS: Prothrombin Time 13.5 sec (12.0-14.7)
[2021-07-20 00:25] LABS: PTT 35.1 sec (22.9-36.1)
[2021-07-20 00:49] LABS: ALT (SGPT) 28 U/L (8-55); AST (SGOT) 45 U/L (5-34); Albumin 3.8 g/dL (3.5-5.0); Alkaline Phosphatase 62 U/L (40-110); Anion Gap 13 mmol/L (10-20); BUN (Urea Nitrogen) 8 mg/dL (7.0-18.7); Bilirubin, Total 0.3 mg/dL (0.2-1.2); Calc. Creatinine Clearance 0 mL/min (70-130); Carbon Dioxide 25 mmol/L (22-29); Chloride 105 mmol/L (98-107); Globulin 4.2 g/dL (2.4-3.5); Glucose 93 mg/dL (70-105); Sodium 139 mmol/L (136-145)
[2021-07-20] MEDS ORDERED: Enoxaparin Sodium 100 MG/ML SYRINGE SC SCH (02:15)
[2021-07-20] MEDS ORDERED: Enoxaparin Sodium 100 MG/ML SYRINGE ONE (02:45)
[2021-07-20] MEDS ORDERED: Prevnar 13-Val Conj/PF 0.5 ML SYRINGE IM ONE (03:00)
[2021-07-20 03:40] LABS: SARS-CoV-2 NAA Rapid Test Not Detected (NotDetected)
[2021-07-20 05:56] LABS: #Eosinphils 0.1 thou/uL (0.0-0.7); #Lymphocytes 2.4 thou/uL (1.20-3.40); #Monocytes 0.5 thou/uL (0.11-0.59); #Neutrophils 2.5 thou/uL (1.40-6.50); %Basophils 0.4 % (0.0-1.0); %Eosinophils 2.3 % (0.0-10.0); %Lymphocytes 43.2 % (21.0-51.0); %Monocytes 8.4 % (0.0-10.0); %Neutrophils 45.8 % (42.0-75.0); Hemoglobin 9.1 g/dL (12.0-16.0); Mean Corpuscular HGB CONC 31.2 g/dL (32.0-36.0); Mean Corpuscular Hemoglobin 26.4 pg (27.0-31.0); Mean Corpuscular Volume 84.7 fL (78.0-98.0); Mean Platelet Volume 7.6 fL (7.4-10.4); Platelet Count 315 thou/uL (130-400); RBC Distribution Width 15.8 % (11.5-14.5); Red Blood Cell (RBC) Count 3.44 mill/uL (4.20-5.40); White Blood Cell (WBC) Count 5.5 thou/uL (4.8-10.8)
[2021-07-20 06:34] VITALS: BMI 30.7
[2021-07-20] MEDS ORDERED: Ondansetron PF 4 MG/2 ML Vial IVP PRN (06:34)
[2021-07-20] MEDS ORDERED: Acetaminophen 325 MG TAB PO PRN (06:35)
[2021-07-20] MEDS ORDERED: Ondansetron ODT 4 MG TAB PO PRN (06:35)
[2021-07-20] MEDS: Enoxaparin Sodium 100 MG/ML SYRINGE SC SCH ×2 (09:31→20:23)
[2021-07-20] MEDS: Amlodipine 5 MG TAB PO SCH ×2 (09:33→11:38)
[2021-07-20] MEDS: Communication Order-Pharmacy FS SCH (10:22)
[2021-07-20] MEDS ORDERED: Warfarin Sodium 7.5 MG TAB PO SCH (17:00)
[2021-07-21] MEDS: Communication Order-Pharmacy FS SCH (02:37)
[2021-07-21 05:31] LABS: INR-International Normal Ratio 1.1
[2021-07-21] MEDS: Amlodipine 5 MG TAB PO SCH (09:20)
[2021-07-21] MEDS: Enoxaparin Sodium 100 MG/ML SYRINGE SC SCH (09:21)
[2021-07-21 12:11] VITALS: BP 121/66; TEMP 98.4
== END 2021-07-21 15:30 | disposition home or self-care (01) ==
LOC: ERS 21:05 → ERHOLD 07-20 01:20 → 2SE 07-20 06:10
PROVIDERS: ADMIT Emergency Medicine; ATTEND Emergency Medicine
DX: I82.812 Embolism and thrombosis of superficial veins of left lower extremity (principal); I10 Essential (primary) hypertension; D64.9 Anemia, unspecified; M06.9 Rheumatoid arthritis, unspecified; F32.A Depression, unspecified; Z20.822 Contact with and (suspected) exposure to COVID-19; Z86.711 Personal history of pulmonary embolism; Z86.16 Personal history of COVID-19; Z79.01 Long term (current) use of anticoagulants; Z79.899 Other long term (current) drug therapy
CPT/HCPCS: 36415; 80053; 85025; 85610; 85730; 96372; G0378; J1650; U0002

== ENCOUNTER 2021-12-24 23:15 | Emergency (ER) | payer OTHER | END 2021-12-25 01:39 | disposition home or self-care (01) | LOC: ERS 23:15 | DX: R60.0 Localized edema (principal); Z86.718 Personal history of other venous thrombosis and embolism ==

== ENCOUNTER 2022-06-11 09:38 | Outpatient (CLI) | payer OTHER | END 2022-06-11 09:39 | disposition home or self-care (01) | LOC: BICRAD 09:38 | PROVIDERS: ATTEND Internal Medicine | DX: Z02.71 Encounter for disability determination (principal) ==

== ENCOUNTER 2022-09-30 14:49 | Emergency (ER) | payer OTHER ==
[2022-09-30] MEDS ORDERED: Dexameth. Sod Phosp. 10 MG/ML (CHEMO USE ONLY) ONE (16:01)
== END 2022-09-30 16:11 | disposition home or self-care (01) ==
LOC: ERS 14:49
DX: J02.9 Acute pharyngitis, unspecified (principal); Z86.711 Personal history of pulmonary embolism; Z86.718 Personal history of other venous thrombosis and embolism
CPT/HCPCS: 87081; 87430; 99283; J1100

== ENCOUNTER 2023-03-02 12:42 | Emergency (ER) | payer OTHER ==
[2023-03-02 13:18] LABS: #Basophils 0.1 thou/uL (0.0-0.2); #Eosinphils 0.3 thou/uL (0.0-0.7); #Monocytes 0.3 thou/uL (0.11-0.59); #Neutrophils 1.9 thou/uL (1.40-6.50); %Basophils 1.2 % (0.0-1.0); %Eosinophils 7.9 % (0.0-10.0); %Lymphocytes 39.5 % (21.0-51.0); %Monocytes 6.5 % (0.0-10.0); %Neutrophils 44.9 % (42.0-75.0); Hemoglobin 13.1 g/dL (12.0-16.0); Mean Corpuscular Hemoglobin 26.7 pg (27.0-31.0); Mean Corpuscular Volume 89.2 fl (78.0-98.0); Mean Platelet Volume 9.9 fL (7.4-10.4); Platelet Count 274 10x3/uL (130-400); RBC Distribution Width 14.8 % (11.5-14.5); White Blood Cell (WBC) Count 4.3 10x3/uL (4.8-10.8)
[2023-03-02 13:37] LABS: ALT (SGPT) 25 U/L (8-55); AST (SGOT) 44 U/L (5-34); Alkaline Phosphatase 59 U/L (40-110); Anion Gap 13 mmol/L (10-20); BUN (Urea Nitrogen) 11 mg/dL (7.0-18.7); Bilirubin, Total 0.3 mg/dL (0.2-1.2); Calc. Creatinine Clearance 0 mL/min (70-130); Calcium 9.1 mg/dL (7.8-10.44); Carbon Dioxide 20 mmol/L (22-29); Chloride 108 mmol/L (98-107); Estimated GFR 107; Glucose 96 mg/dL (70-105); Potassium 3.9 mmol/L (3.5-5.1); Sodium 137 mmol/L (136-145)
[2023-03-02 14:33] LABS: PTT 34.5 sec (22.9-36.1); Prothrombin Time 13.8 sec (12.0-14.7)
[2023-03-02 15:00] LABS: BHCG - Serum Negative (NEGATIVE); Pregs Control Background? CLEAR/WHITE (CLR/WHITE); Pregs Control Bar Appear? YES (CONTROL BAR)
== END 2023-03-02 15:41 | disposition home or self-care (01) ==
LOC: ERS 12:42
DX: M79.605 Pain in left leg (principal); D72.819 Decreased white blood cell count, unspecified
CPT/HCPCS: 36415; 80053; 84484; 84703; 85025; 85610; 85730; 93005

== ENCOUNTER 2023-09-19 13:38 | Emergency (ER) | payer MEDICAID, MEDICARE, OTHER ==
[2023-09-19 15:20] LABS: SARS-CoV-2 NAA Rapid Test Not Detected (NotDetected)
== END 2023-09-19 15:35 | disposition home or self-care (01) ==
LOC: ERS 13:38
DX: J10.1 Influenza due to other identified influenza virus with other respiratory manifestations (principal); Z20.822 Contact with and (suspected) exposure to COVID-19
CPT/HCPCS: 99283

== ENCOUNTER 2023-09-22 14:20 | Emergency (ER) | payer MEDICARE ==
[2023-09-22] MEDS ORDERED: Dicyclomine 20 MG/2 ML VIAL ONE (14:59)
== END 2023-09-22 16:48 | disposition home or self-care (01) ==
LOC: ERS 14:20
DX: J11.1 Influenza due to unidentified influenza virus with other respiratory manifestations (principal); R19.7 Diarrhea, unspecified
CPT/HCPCS: 96372; 99283

== ENCOUNTER 2024-09-12 11:18 | Emergency (ER) | payer MEDICARE, MEDICAID ==
[2024-09-12] MEDS ORDERED: cefTRIAXone (ROCEPHIN) 1 GM VIAL ONE (13:44)
[2024-09-12] MEDS ORDERED: Lidocaine 1% MPF 2 ML VIAL ONE (13:44)
== END 2024-09-12 13:54 | disposition home or self-care (01) ==
LOC: ERS 11:18
DX: J18.9 Pneumonia, unspecified organism (principal)
CPT/HCPCS: 71045; 87081; 87430; J0696; 96372

== ENCOUNTER 2024-11-13 00:21 | Emergency (ER) | payer MEDICAID, MEDICARE, OTHER ==
[2024-11-13] MEDS ORDERED: guaiFENesin ER 600 MG TAB ONE (01:08)
[2024-11-13 02:07] LABS: #Basophils Less than 0.03 10x3/uL (0.0-0.2); %Basophils 0.2 % (0.0-1.0); %Lymphocytes 25.4 % (21.0-51.0); %Monocytes 5.6 % (0.0-10.0); %Neutrophils 65.6 % (42.0-75.0); Hematocrit 40.2 % (36.0-47.0); Mean Corpuscular HGB CONC 32.3 g/dL (32.0-36.0); Mean Corpuscular Hemoglobin 26.5 pg (27.0-31.0); Mean Corpuscular Volume 81.9 fL (78.0-98.0); Mean Platelet Volume 9.8 fL (7.4-10.4); Platelet Count 261 10x3/uL (130-400); Red Blood Cell (RBC) Count 4.91 mill/uL (4.20-5.40)
[2024-11-13 02:44] LABS: Troponin I Less than 0.010 ng/mL (< 0.028)
[2024-11-13 02:45] LABS: ALT (SGPT) 25 U/L (Less than 34); AST (SGOT) 64 U/L (11-34); Albumin 3.8 g/dL (3.1-4.5); Alkaline Phosphatase 56 U/L (40-110); BUN (Urea Nitrogen) 11 mg/dL (7.0-18.7); Bilirubin, Total 0.2 mg/dL (0.3-1.2); Calc. Creatinine Clearance 0 mL/min (70-130); Carbon Dioxide 21 mmol/L (22-29); Estimated GFR 123; Globulin 5.4 g/dL (2.4-3.5); Glucose 83 mg/dL (70-105); Protein, Total 9.2 g/dL (6.0-8.3)
[2024-11-13 03:11] LABS: Anion Gap 14 mmol/L (10-20); Chloride 106 mmol/L (98-107); Potassium 3.9 mmol/L (3.5-5.1); Sodium 136 mmol/L (136-145)
[2024-11-13] MEDS ORDERED: Iopamidol 370 76% 100 ML VIAL ONE (12:48)
== END 2024-11-13 05:03 | disposition home or self-care (01) ==
LOC: ERS 00:21
DX: R05.9 Cough, unspecified (principal); J84.10 Pulmonary fibrosis, unspecified
CPT/HCPCS: 71045; 71275; 80053; 83605; 84484; 85025; 85379; 87428; 93005; Q9967